=== PATIENT | female | born 1935 | race Caucasian/White ===

== ENCOUNTER → 2017-01-26 | Outpatient (CLI) | payer MEDICARE, MEDICAID ==
[~2017-01-26] MED LIST: ACET-2161 PO; AMIO200T2 PO; ASCO-324 PO; CHOL200026 PO; DOCU-168 PO; FURO20TA4 PO; GLUC1TAB27 PO; HYDR-3989 PO; MIDO2.5T PO; MULT-85 PO; SENN-9 PO; WARF3TAB29 PO
--- NOTE | 2017-01-26 09:56 | DI ---
Indication: ITS.REASON: N28.89 RENAL MASS RIGHT PROCEDURE: CT ABDOMEN W/O CONTRAST: Encounter: Subsequent Comparison: CT abdomen dated September 10, 2016 Technique: Axial CT images were performed through the abdomen without intravenous contrast. Coronal and sagittal two-dimensional reformats. Automated Exposure Control and Iterative Reconstruction dose reducing techniques were utilized. Findings: The lung bases are unchanged. The liver is grossly unremarkable on this noncontrast study. Gallbladder is surgically absent. The spleen, partially fatty replaced pancreas and adrenal glands are unchanged. Irregular right renal mass is again seen measuring 6.9 cm craniocaudally and 5.3 cm transversely on coronal image #32. This is stable from the comparison exam. No obvious new renal mass lesions identified. No retroperitoneal adenopathy. The visualized loops of small and large bowel are unremarkable. Bone windows are unchanged. Impression: Stable large right renal mass. .
== END ==
LOC: IMA 08:57
PROVIDERS: ATTEND Specialist
DX: N28.89 Other specified disorders of kidney and ureter (principal)

== ENCOUNTER 2018-05-15 16:03 | Inpatient (IN) ==
--- NOTE | 2018-05-15 17:04 | History & Physical Report ---
History of Present Illness Date: 05/15/18 Chief complaint: Headache HPI: Purvi Tomas is an 82 year old woman who was directly admitted to observation status from Dr. Pitts for further evaluation of a severe headache. Purvi reports that her headache started at 0300 on 05/13/18, after getting up to use the restroom. She describes the pain as sharp, tender to touch, and the pain worsens with movement. It is occipital but spreads into the parietal areas. It does not go into the neck. She has been taking Tylenol every 6 hours which she thinks has been helpful. While she sometimes has cloudy vision and sees a floater, she has not noticed any acute visual changes. She denies photophobia. She has had some mild nausea. She denies paresthesias or unilateral weakness. She denies fever, chills, or sweating. She denies dizziness, vertigo, tinnitus, or falling. Since her heart surgery 2 years ago she intermittently has chest pain and palpitations, and sometimes is slightly dyspneic. She denies URI symptoms. She has chronic leg swelling that worsens as the day goes on. She denies abdominal pain/cramping but sometimes has diarrhea if she eats fatty foods. She denies dysuria or urinary frequency. Review of Systems All systems PM: 10-point ROS was reviewed, no additional remarkable complaints except - Constitutional Constitutional: Present: as per HPI - EENMT Eyes: Present: as per HPI Ears: Present: as per HPI Balance: Present: as per HPI Mouth/Throat: Absent: changes in swallowing - Cardiovascular Cardiovascular: Present: as per HPI Vascular: Present: see HPI - Respiratory Respiratory: Present: as per HPI - Gastrointestinal Gastrointestinal: Present: as per HPI - Genitourinary Genitourinary: Present: as per HPI - Musculoskeletal Musculoskeletal: Present: other (left shoulder pain) - Integumentary/Breasts Integumentary: Present: other (purple colored lesion to left wrist - chronic) - Neurological Neurological: Present: as per HPI - Psychiatric Psychiatric: Absent: anxiety - Endocrine Endocrine: Present: as per HPI - Hematologic/Lymphatic Hematologic/Lymphatic: Present: easy bruising Past Medical History Medical History: Medical History (Last Reviewed 04/05/17 @ 16:30 by BABATUNDE Wong) Rotator cuff tendinitis (Chronic) Chronic kidney disease (Chronic) Chronic pain of both shoulders (Chronic) Allergic conjunctivitis and rhinitis (Chronic) Renal mass, right (Chronic) 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 Cholecystectomy Family History: Family History (Last Reviewed 04/05/17 @ 16:30 by BABATUNDE Wong) Father , Age 79 Gangrene of gallbladder Mother , Age 96 CHF (congestive heart failure) Sister , Age 57 Uterine cancer Paternal Grandfather Stroke High blood pressure Maternal Grandfather Malignant neoplasm Cancerous growth on arm Family History: As Above - Social History Smoking status: Never smoker Substance use type: does not use Alcohol intake frequency: does not drink Medications Home Medications Medication Instructions Recorded Confirmed Type Multivit with Calcium,Iron,Min 1 tab PO DAILY #0 05/26/15 05/15/18 History [Multiple Vitamins For Women] Acetaminophen [Acetaminophen Extra 500 mg PO TID #0 tab 10/25/15 05/15/18 History Strength] Ascorbate Calcium [Vitamin C] 500 mg PO DAILY #0 tab 01/27/16 05/15/18 History Sennosides/Docusate Sodium 0.5 tab PO Q2D #0 tab 01/27/16 05/15/18 History [Senokot-S Tablet] Acetaminophen [Tylenol] 500 mg PO Q6H PRN 11/30/17 05/15/18 History Docusate Sodium [Colace] 100 mg PO DAILY 11/30/17 05/15/18 History Eucalyptus/Menthol [Cough Drops] 1 each MM PRN 11/30/17 05/15/18 History Guaifenesin/Dextromethorphan 10 ml PO Q4H PRN 11/30/17 05/15/18 History [Robitussin Cough-Chest Dm Liq] Midodrine [Proamatine] 2.5 mg PO BID 11/30/17 05/15/18 History Cholecalciferol (Vitamin D3) 2,000 unit PO DAILY 01/02/18 05/15/18 History [Vitamin D3] Famotidine [Pepcid] 20 mg PO HS 01/02/18 03/02/18 History Fluticasone Nasal [place] [Flonase] 1 spray EA NOSTRIL BID 01/02/18 05/15/18 History Glucosamine 1,000 mg PO DAILY 01/02/18 05/15/18 History Hydrocodone/APAP 5/325 [[place] 1 tab PO Q4-6HPRN PRN #20 tab 01/02/18 05/15/18 Rx 5/325] Claritin (Loratadine) 10 mg tablet 10 mg PO ACB PRN #90 tab 02/07/18 05/15/18 Rx digoxin 125 mcg tablet 125 mcg PO DAILY 14 Days #14 tab 03/02/18 05/15/18 History warfarin 2 mg tablet 2 mg PO .QSun tab 04/04/18 05/15/18 History warfarin 3 mg tablet 3 mg PO .COMPLEX 14 Days #14 tab 04/04/18 05/15/18 History Allergies Allergy/AdvReac Type Severity Reaction Status Date / Time Penicillins Allergy Intermediate INJECTION Verified 05/15/18 17:37 SITE RED olmesartan Allergy Unknown Verified 05/15/18 17:37 nitroglycerin AdvReac Severe HEADACHE, Verified 05/15/18 17:37 HYPOTENSION aspirin AdvReac Mild CAUSES Verified 05/15/18 17:37 DYSPEPSIA carvedilol AdvReac Unknown SEVERE Verified 05/15/18 17:37 DIARRHEA adhesive AdvReac Verified 05/15/18 17:37 Exam - Constitutional Present: well nourished, well developed, thin Comments: Patient began crying in pain with movement from sitting to lying supine. Once the movement ceased she was in no acute distress. - Routine HEENT Exam Head: Present: normocephalic Eye: Present: PERRL, normal accommodation. Absent: conjunctival icterus, scleral injection ENT: Present: mucous membranes moist, oropharynx clear. Absent: dentition normal (edentulous - dentures) - Routine Neck Exam Present: supple, full ROM. Absent: lymphadenopathy, tenderness, meningismus - Routine Respiratory Exam Present: CTA bilaterally - Routine Cardiovascular Exam Present: S1, S2, gallop - Routine Abdominal Exam Present: soft, normoactive bowel sounds, non distended, non tender - Routine Extremities Exam Present: edema (trace-1+ BLE), pulses intact. Absent: calf tenderness - Routine Skin Exam Present: intact, dry, warm Comments: left wrist is larger than right - pt reports that she has a "fat deposit" there ; the purple lesions to her lateral left wrist are also chronic - Routine Neurological Exam Present: alert, oriented X3, CN II-XII intact, moving all extremities, normal tone, vision grossly intact, hearing grossly intact, normal speech. 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 Labs (CBC, CMP, lactate, BC, PCT, dig, INR, and UA) and CT head ordered. Consider lumbar puncture. Consider neuro consult. Further orders pending results of above workup. Sx control: Morphine PRN, Tylenol PRN, [place] PRN, Zofran PRN. Advanced directives: Brother is DPOA. Full code. DVT Prophylaxis: SCD's, Coumadin GI Prophylaxis: Pepcid Resuscitation Status: Full Code - Physician Narrative Physician: Rodrigo Bernal MD Narrative: Date: 05/15/18 Time: 1925 Have independently interviewed and examined pt. Chart reviewed. Case discussed with Dr Pitts and my SLOT OPERATIONS MANAGER. Care plan developed with my supervision; agree with above. Presents to clinic secondary to intractable BECK for the past 2 days. Posterior aspect of head. VERY tender to touch. Pain worsening with time. No f/c. Patient seen after having MS for pain-converses, but reports it's hard to track and focus secondary to the pain medication. Lungs: clear CV: regular AB: soft nt MSE: awake alert Plan: OBS. Will initiate Neurontin and Muscle relaxant for pain. Heating pad as needed. PT/OT to eval/treat her tension headache. Monitor lab. Hospital Course Summary Disclaimer: The visit summary below is not to be considered part of the above Progress Note. Hospital Course: 05/15/18 Admit, observation status, under the hospitalist service. Labs (CBC, CMP, lactate, BC, PCT, dig, INR, and UA) and CT head ordered. Consider lumbar puncture. Consider neuro consult. Further orders pending results of above workup. Sx control: Morphine PRN, Tylenol PRN, [place] PRN, Zofran PRN, Heating pad PRN. Add Neurontin to help pain. Routine Norflex IV. Will consult PT/OT.
[2018-05-15] MEDS: SALINE FLUSH 10ml SYRINGE IV PRN ×3 (17:30→23:05)
[2018-05-15] MEDS: MORPHINE SULFATE 2mg INJECTION IVP PRN ×2 (17:33→22:59)
[2018-05-15] MEDS ORDERED: GABAPENTIN 300 MG CAPSULE PO ONE (17:41)
[2018-05-15] MEDS ORDERED: BISACODYL 10 MG SUPPOSITORY RECTALLY PRN (18:11)
[2018-05-15] MEDS: ORPHENADRINE 60 MG/2 ML INJECTION IVP SCH (18:29)
[2018-05-15] MEDS: ACETAMINOPHEN 500 MG TABLET PO SCH (20:31)
[2018-05-15] MEDS: MIDODRINE 2.5 MG TABLET PO SCH (20:32)
[2018-05-15] MEDS ORDERED: GABAPENTIN 300 MG CAPSULE PO SCH (21:00)
[2018-05-16] MEDS: ACETAMINOPHEN 325 MG TABLET PO PRN ×2 (04:32→21:20)
[2018-05-16] MEDS: MORPHINE SULFATE 2mg INJECTION IVP PRN ×2 (04:58→16:49)
--- NOTE | 2018-05-16 07:56 | CT Scan Report ---
Indication: Headache; warfarin use PROCEDURE: CT head/brain wo con: Encounter: Initial Comparison: None Technique: Axial CT images through the head were performed without contrast. Iterative Reconstruction dose reducing technique was utilized. FINDINGS: The ventricles are of normal size, shape, and contour for the patient's age. There are scattered areas of low attenuation in the white matter which most likely represent changes from chronic microvascular ischemia. The brainstem, cerebellum, and cerebral hemispheres otherwise have a normal morphology and CT attenuation. There is no evidence of midline displacement. No hemorrhage, signs of acute territorial stroke, mass effect, mass lesions, or edema is evident. The visualized portions of the skull base, midface, and calvarium demonstrate no abnormality. The paranasal sinuses are well aerated and free of significant disease. The tympanic and mastoid cavities appear normal. IMPRESSION: No acute intracranial abnormality or hemorrhage. .
--- NOTE | 2018-05-16 08:30 | Progress Note ---
- Date 05/16/18 Subjective: Purvi still complains of severe headache. She also now has a painful rash to the left side of her neck. She denies SOA or chest pain. She has not had any abdominal pain or nausea. She denies ever having shingles before. Family reported yesterday that she's more confused than usual. Objective Vital signs: Temperature 95.9 F L 05/16/18 07:55 Pulse Rate 97 05/16/18 07:55 Respiratory Rate 18 05/16/18 07:55 Blood Pressure 105/71 05/16/18 07:55 Pulse Oximetry 92 05/16/18 07:55 Height/Weight/BMI: Height 1.57 m Weight 69.7 kg Body Mass Index 28.4 - Constitutional Present: no acute distress, well nourished, well developed - Routine HEENT Exam Head: Present: normocephalic Eye: Present: PERRL. Absent: conjunctival icterus, scleral injection ENT: Present: mucous membranes dry, oropharynx clear - Routine Respiratory Exam Present: CTA bilaterally - Routine Cardiovascular Exam Present: RRR, S1, S2, gallop - Routine Abdominal Exam Present: soft, normoactive bowel sounds, non distended, non tender - Routine Extremities Exam Present: no edema - Routine Musculoskeletal Exam Musculoskeletal: Present: moving extremities well - Routine Skin Exam Present: intact, dry, warm, rash (vesicular rash to left anterior neck, with scattered areas of erythema to left deltoid and upper chest wall. No auricular involvement.) - Routine Neurological Exam Present: alert, CN II-XII intact, moving all extremities, vision grossly intact , hearing grossly intact, normal speech - Routine Psychiatric Exam Present: normal affect, normal thought process, cooperative Results - Labs CBC & Chem 7: 05/16/18 04:05 05/16/18 04:05 Microbiology Results: Microbiology 05/15/18 16:56 Peripheral/Iv Start Blood Culture - Preliminary Culture Initiated - Results Pending 05/15/18 17:03 Peripheral/Iv Start Blood Culture - Preliminary Culture Initiated - Results Pending Assessment and Plan Assessment and Plan: Assessment Herpes Zoster Intractable headache A-fib, anticoagulated on Coumadin CAD Right renal mass, 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 With reports of increased confusion , will initiate IV rather than PO acyclovir so as to be more aggressive for neurologic complications. Patient moved to a room to implement airborne precautions.There were no lesions on her ear to suggest Soliz Shah syndrome nor were there lesions on her face or around her eye. Head CT was negative for stroke/hemorrhage. Labs stable, INR therapeutic. Continue with symptom management. High risk medication in use - received IV morphine this am. DVT Prophylaxis: SCD's, Coumadin GI Prophylaxis: Pepcid Resuscitation Status: Full Code - Time spent with patient Time with patient PN: 25 minutes - Physician Narrative Physician: Rodrigo Bernal MD Narrative: Date: 05/16/18 Time: 1720 Have independently interviewed & examined pt. Chart reviewed. Case discussed with CM & my HIGHWAY PAINTER. Care plan developed with my supervision; agree with above. Still with pain to back of neck, very sore to even light touch. Rash and raised lesions developing on anterior neck and chest. Not having ab pain or nausea. Breathing stable. Lungs: clear CV: Irregular AB: soft nt MSE: awake alert appropriate Plan: Acyclovir started for shingles treatment. Will increase Neurontin to help pain. PT/OT to help functional status. INR stable - 3mg of warfarin this evening. With extensive area of shingles involvement to neck and chest with need for IV acyclovir, will change admission status to inpatient as anticipate greater then 2 midnights of care needed. Hospital Course Summary Disclaimer: The visit summary below is not to be considered part of the above Progress Note. Hospital Course: 05/15/18 Admit, observation status, under the hospitalist service. Labs (CBC, CMP, lactate, BC, PCT, dig, INR, and UA) and CT head ordered. Consider lumbar puncture. Consider neuro consult. Further orders pending results of above workup. Sx control: Morphine PRN, Tylenol PRN, [place] PRN, Zofran PRN, Heating pad PRN. Add Neurontin to help pain. Routine Norflex IV. Will consult PT/OT. 05/16/18 Lesions highly suspicious for herpes zoster. With reports of increased confusion , will initiate IV rather than PO acyclovir so as to be more aggressive for neurologic complications. Patient moved to a room to implement airborne precautions.There were no lesions on her ear to suggest Soliz Shah syndrome nor were there lesions on her face or around her eye. Head CT was negative for stroke/hemorrhage. Labs stable, INR therapeutic. Continue with symptom management. High risk medication in use - received IV morphine this am. With extensive area of shingles involvement to neck and chest with need for IV acyclovir, will change admission status to inpatient as anticipate greater then 2 midnights of care needed.
[2018-05-16] MEDS: ORPHENADRINE 60 MG/2 ML INJECTION IVP SCH (09:41)
[2018-05-16] MEDS: MIDODRINE 2.5 MG TABLET PO SCH ×2 (09:41→15:08)
[2018-05-16] MEDS: ACETAMINOPHEN 500 MG TABLET PO SCH ×2 (09:41→15:02)
[2018-05-16] MEDS: DIGOXIN 125 MCG TABLET PO SCH (09:41)
[2018-05-16] MEDS: SALINE FLUSH 10ml SYRINGE IV PRN ×2 (09:42→16:49)
[2018-05-16] MEDS: 1/2 NS 1,000 ML IV SCH (09:44)
[2018-05-16] MEDS: NS IV SCH ×2 (10:46→18:05)
[2018-05-16] MEDS: ACYCLOVIR IV SCH ×2 (10:46→18:05)
[2018-05-16] MEDS: HYDROCODONE/APAP 5mg/325mg TABLET PO PRN (10:48)
[2018-05-16 12:11] VITALS: BMI 28.0
[2018-05-16] MEDS: GABAPENTIN 300 MG CAPSULE PO SCH ×2 (15:02→21:20)
[2018-05-16] MEDS ORDERED: WARFARIN 3 MG TABLET PO ONE (17:03)
[2018-05-17] MEDS: ACETAMINOPHEN 500 MG TABLET PO SCH ×4 (00:44→20:28)
[2018-05-17] MEDS: HYDROCODONE/APAP 5mg/325mg TABLET PO PRN ×2 (01:12→09:15)
[2018-05-17] MEDS: ACYCLOVIR IV SCH ×3 (01:51→17:10)
[2018-05-17] MEDS: NS IV SCH ×3 (01:51→17:10)
[2018-05-17] MEDS: 1/2 NS 1,000 ML IV SCH ×2 (01:51→17:11)
[2018-05-17] MEDS: GUAIFENESIN/D-METHORPHAN 600mg/30mg TABLET PO PRN (06:04)
[2018-05-17] MEDS: SENNA + DOCUSATE TABLET PO PRN (09:06)
[2018-05-17] MEDS: MIDODRINE 2.5 MG TABLET PO SCH ×2 (09:06→15:01)
[2018-05-17] MEDS: DIGOXIN 125 MCG TABLET PO SCH (09:15)
[2018-05-17] MEDS: GABAPENTIN 300 MG CAPSULE PO SCH ×3 (09:16→20:28)
[2018-05-17] MEDS: SALINE FLUSH 10ml SYRINGE IV PRN ×2 (12:35→19:36)
[2018-05-17] MEDS: MORPHINE SULFATE 2mg INJECTION IVP PRN ×2 (12:35→19:36)
[2018-05-17] MEDS ORDERED: WARFARIN 2.5 MG TABLET PO ONE (17:00)
[2018-05-17] MEDS: ONDANSETRON 4 MG/2 ML INJECTION IVP PRN (17:11)
--- NOTE | 2018-05-17 19:52 | Progress Note ---
- Date 05/17/18 Subjective: F/U: Shingles Doing fair. Pain still very problematic. Has been working with therapy to help keep strength up-harder for her to be active on her own due to pain. Appetite decreased-not wanting food, notes ab bloating and gas. Not had stool. Breathing stable-no discomfort with breathing or cough/congestion. Not having chest pain. Objective Vital signs: Temperature 97.1 F 05/17/18 15:38 Pulse Rate 82 05/17/18 15:38 Respiratory Rate 16 05/17/18 19:36 Blood Pressure 112/69 05/17/18 15:38 Pulse Oximetry 93 05/17/18 15:38 Height/Weight/BMI: Height 1.57 m Weight 72 kg Body Mass Index 28.0 - Constitutional Present: well developed, average body habitus, cooperative, other (Appears tired and weak) - Routine HEENT Exam Head: Present: normocephalic, atraumatic Eye: Present: EOMI, PERRL - Routine Respiratory Exam Present: decreased breath sounds. Absent: respiratory distress, wheezes, crackles - Routine Cardiovascular Exam Present: RRR, no murmur - Routine Abdominal Exam Present: soft, non distended, non tender. Absent: normoactive bowel sounds ( decreased) - Routine Extremities Exam Present: no edema, pulses intact. Absent: cyanosis, clubbing - Routine Musculoskeletal Exam Musculoskeletal: Present: no clubbing or cyanosis - Routine Skin Exam Present: dry, warm, rash (To left anterior neck) - Routine Neurological Exam Present: alert, oriented X3, CN II-XII intact, moving all extremities, vision grossly intact, hearing grossly intact, normal speech. Absent: altered mental status - Routine Psychiatric Exam Present: normal affect, cooperative Results - Labs CBC & Chem 7: 05/16/18 04:05 05/17/18 05:24 Microbiology Results: Microbiology 05/15/18 17:03 Peripheral/Iv Start Blood Culture - Preliminary No Growth After 2 Days 05/15/18 16:56 Peripheral/Iv Start Blood Culture - Preliminary No Growth After 2 Days Assessment and Plan (1) Herpes zoster Current visit: Yes Status: Acute (2) Intractable headache Current visit: Yes Status: Acute Assessment and Plan: Assessment Herpes Zoster Intractable headache A-fib, anticoagulated on Coumadin CAD Right renal mass, 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 Continue with pain control. Oral drive with decreased - will continue with low follow IVF. INR 2.08 - 2.5mg warfarin today. PT/OT to help strength and functional status. Bowels slow - add routine Miralax. Time spent with patient care 25 minutes. High risk medication involved: IV morphine. DVT Prophylaxis: SCD's, Coumadin GI Prophylaxis: Pepcid Resuscitation Status: Full Code - Time spent with patient Time with patient PN: 25 minutes - Physician Narrative Physician: Rodrigo Bernal MD Narrative: Date: 05/17/18 Time: 1948 Hospital Course Summary Disclaimer: The visit summary below is not to be considered part of the above Progress Note. Hospital Course: 05/15/18 Admit, observation status, under the hospitalist service. Labs (CBC, CMP, lactate, BC, PCT, dig, INR, and UA) and CT head ordered. Consider lumbar puncture. Consider neuro consult. Further orders pending results of above workup. Sx control: Morphine PRN, Tylenol PRN, [place] PRN, Zofran PRN, Heating pad PRN. Add Neurontin to help pain. Routine Norflex IV. Will consult PT/OT. 05/16/18 Lesions highly suspicious for herpes zoster. With reports of increased confusion , will initiate IV rather than PO acyclovir so as to be more aggressive for neurologic complications. Patient moved to a room to implement airborne precautions.There were no lesions on her ear to suggest Soliz Shah syndrome nor were there lesions on her face or around her eye. Head CT was negative for stroke/hemorrhage. Labs stable, INR therapeutic. Continue with symptom management. High risk medication in use - received IV morphine this am. With extensive area of shingles involvement to neck and chest with need for IV acyclovir, will change admission status to inpatient as anticipate greater then 2 midnights of care needed. 05/17/18 Continue acyclovir for zoster treatment. Continue with pain control. Oral drive with decreased - will continue with low follow IVF. INR 2.08 - 2.5mg warfarin today. PT/OT to help strength and functional status. Bowels slow - add routine Miralax.
[2018-05-18] MEDS: SALINE FLUSH 10ml SYRINGE IV PRN (02:47)
[2018-05-18] MEDS: MORPHINE SULFATE 2mg INJECTION IVP PRN ×2 (02:47→06:23)
[2018-05-18] MEDS: NS IV SCH ×3 (02:48→18:10)
[2018-05-18] MEDS: ACYCLOVIR IV SCH ×3 (02:48→18:10)
[2018-05-18] MEDS: GABAPENTIN 300 MG CAPSULE PO SCH ×3 (08:54→20:10)
[2018-05-18] MEDS: MIDODRINE 2.5 MG TABLET PO SCH ×2 (08:55→14:38)
[2018-05-18] MEDS: ACETAMINOPHEN 500 MG TABLET PO SCH ×3 (08:56→20:10)
[2018-05-18] MEDS: DIGOXIN 125 MCG TABLET PO SCH (08:56)
[2018-05-18] MEDS: HYDROCODONE/APAP 5mg/325mg TABLET PO PRN (10:01)
[2018-05-18] MEDS: ONDANSETRON 4 MG/2 ML INJECTION IVP PRN ×2 (10:01→14:43)
[2018-05-18] MEDS: 1/2 NS 1,000 ML IV SCH ×2 (10:42→19:47)
--- NOTE | 2018-05-18 13:25 | Progress Note ---
- Date 05/18/18 Subjective: Purvi is seen today in follow up. She is finishing lunch and has tolerated soup well. She reports having nausea earlier this am the has improved. Overall head ache is better however not completely gone. Denies chest pain or abdominal pain. Remains afebrile and vital signs are normal. Objective Vital signs: Temperature 96.4 F L 05/18/18 07:50 Pulse Rate 69 05/18/18 08:56 Respiratory Rate 14 05/18/18 11:20 Blood Pressure 116/65 05/18/18 07:50 Pulse Oximetry 91 05/18/18 07:50 Height/Weight/BMI: Height 1.57 m Weight 74.9 kg Body Mass Index 28.0 - Constitutional Present: no acute distress, well nourished, well developed - Routine HEENT Exam Eye: Present: EOMI ENT: Present: mucous membranes moist, dentition normal - Routine Respiratory Exam Present: CTA bilaterally. Absent: wheezes - Routine Cardiovascular Exam Present: RRR, S1, S2. Absent: murmur - Routine Abdominal Exam Present: soft, normoactive bowel sounds, non distended. Absent: tenderness - Routine Extremities Exam Present: no edema - Routine Skin Exam Present: intact, dry, warm - Routine Neurological Exam Present: alert, oriented X3, CN II-XII intact - Routine Lymphatic Exam Lymphatic: Absent: adenopathy - Routine Psychiatric Exam Present: normal affect Results - Labs CBC & Chem 7: 05/16/18 04:05 05/17/18 05:24 Microbiology Results: Microbiology 05/15/18 17:03 Peripheral/Iv Start Blood Culture - Preliminary No Growth After 2 Days 05/15/18 16:56 Peripheral/Iv Start Blood Culture - Preliminary No Growth After 2 Days Assessment and Plan (1) Herpes zoster Current visit: Yes Status: Acute (2) Intractable headache Current visit: Yes Status: Acute Assessment and Plan: Assessment Herpes Zoster Intractable headache A-fib, anticoagulated on Coumadin CAD Right renal mass, 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 Continues to have intermittent nausea requiring antiemetics Encourage increase in PO intake as able to tolerated for hydration INR therapeutic at 2.5 Encourage ongoing work with PT/OT for strengthening DVT Prophylaxis: SCD's, Coumadin GI Prophylaxis: Pepcid Resuscitation Status: Full Code - Time spent with patient Time with patient PN: 25 minutes - Physician Narrative Physician: Rodrigo Bernal MD Narrative: Date: 05/18/18 Time: 1842 Have independently interviewed and examined pt. Chart reviewed. Case discussed with CM & my YARD MANAGER. Care plan developed with my supervision; agree with above. Doing fair. Tolerating therapy. Pain about the same. Notes little appetite. Nausea at time, slight decrease. No ab pain. Not had stool. Breathing well. Lungs: decreased, no distress CV: regular AB: soft nt BS decreased MSE: awake alert Plan: Continue acyclovir. Will decrease IVF to 50cc/hr. Warfarin 2.5mg today. Recheck CBC and BMP in am. Will need Skilled care at discharge; CM making arrangements. Hospital Course Summary Disclaimer: The visit summary below is not to be considered part of the above Progress Note. Hospital Course: 05/15/18 Admit, observation status, under the hospitalist service. Labs (CBC, CMP, lactate, BC, PCT, dig, INR, and UA) and CT head ordered. Consider lumbar puncture. Consider neuro consult. Further orders pending results of above workup. Sx control: Morphine PRN, Tylenol PRN, [place] PRN, Zofran PRN, Heating pad PRN. Add Neurontin to help pain. Routine Norflex IV. Will consult PT/OT. 05/16/18 Lesions highly suspicious for herpes zoster. With reports of increased confusion , will initiate IV rather than PO acyclovir so as to be more aggressive for neurologic complications. Patient moved to a room to implement airborne precautions.There were no lesions on her ear to suggest Soliz Shah syndrome nor were there lesions on her face or around her eye. Head CT was negative for stroke/hemorrhage. Labs stable, INR therapeutic. Continue with symptom management. High risk medication in use - received IV morphine this am. With extensive area of shingles involvement to neck and chest with need for IV acyclovir, will change admission status to inpatient as anticipate greater then 2 midnights of care needed. 05/17/18 Continue acyclovir for zoster treatment. Continue with pain control. Oral drive with decreased - will continue with low follow IVF. INR 2.08 - 2.5mg warfarin today. PT/OT to help strength and functional status. Bowels slow - add routine Miralax. 05/18/18 Continue IV acyclovir for zoster treatment. Continues to have intermittent nausea requiring antiemetics. Encourage increase in PO intake as able to tolerated for hydration; will decrease IVF to 50cc/hr. INR therapeutic at 2.5 - warfarin 2.5mg x1 today. Encourage ongoing work with PT/OT for strengthening. Will need skilled care at time of discharge.
[2018-05-19] MEDS: HYDROCODONE/APAP 5mg/325mg TABLET PO PRN ×3 (00:58→18:00)
[2018-05-19] MEDS: NS IV SCH ×3 (02:18→18:00)
[2018-05-19] MEDS: ACYCLOVIR IV SCH ×3 (02:18→18:00)
[2018-05-19] MEDS: MORPHINE SULFATE 2mg INJECTION IVP PRN (04:26)
[2018-05-19] MEDS: ONDANSETRON 4 MG/2 ML INJECTION IVP PRN ×2 (04:27→12:13)
[2018-05-19] MEDS: GABAPENTIN 300 MG CAPSULE PO SCH ×3 (08:12→21:15)
[2018-05-19] MEDS: ACETAMINOPHEN 500 MG TABLET PO SCH ×3 (08:12→21:15)
[2018-05-19] MEDS: MIDODRINE 2.5 MG TABLET PO SCH ×2 (08:13→14:54)
[2018-05-19] MEDS: 1/2 NS 1,000 ML IV SCH ×2 (08:13→10:15)
[2018-05-19] MEDS: DIGOXIN 125 MCG TABLET PO SCH (08:13)
[2018-05-19] MEDS ORDERED: SCOPOLAMINE 1mg/3 days PATCH (Eq. 1.5 Patch) TD SCH (09:15)
--- NOTE | 2018-05-19 09:22 | Progress Note ---
- Date 05/19/18 Subjective: Purvi is seen today in follow up. She is feeling terrible this morning with increased nausea and headache. She states that her pain wraps around the entire back of her head. She denies feeling short of breath or abd pain. vital signs stable. Objective Vital signs: Temperature 97.0 F 05/19/18 07:51 Pulse Rate 86 05/19/18 08:13 Respiratory Rate 16 05/19/18 07:51 Blood Pressure 132/82 05/19/18 07:51 Pulse Oximetry 90 05/19/18 07:51 Height/Weight/BMI: Height 1.57 m Weight 74.2 kg Body Mass Index 28.0 - Constitutional Present: no acute distress, well nourished, well developed - Routine HEENT Exam Eye: Present: EOMI ENT: Present: mucous membranes moist, dentition normal - Routine Respiratory Exam Present: CTA bilaterally. Absent: wheezes - Routine Cardiovascular Exam Present: RRR, S1, S2. Absent: murmur - Routine Abdominal Exam Present: soft, normoactive bowel sounds, non distended. Absent: tenderness - Routine Extremities Exam Present: full ROM - Routine Back/Spine/Pelvis Exam Back/Spine: Present: full ROM - Routine Skin Exam Present: intact, dry, warm Comments: neck lesions - Routine Neurological Exam Present: alert, oriented X3, CN II-XII intact - Routine Lymphatic Exam Lymphatic: Absent: adenopathy - Routine Psychiatric Exam Present: normal affect, cooperative Results - Labs CBC & Chem 7: 05/19/18 05:20 05/19/18 05:20 Microbiology Results: Microbiology 05/15/18 16:56 Peripheral/Iv Start Blood Culture - Preliminary No Growth After 3 Days 05/15/18 17:03 Peripheral/Iv Start Blood Culture - Preliminary No Growth After 3 Days Assessment and Plan (1) Herpes zoster Current visit: Yes Status: Acute (2) Intractable headache Current visit: Yes Status: Acute Assessment and Plan: Assessment Herpes Zoster Intractable headache A-fib, anticoagulated on Coumadin CAD Right renal mass, 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 Sodium decreased today to 131 Oral intake has been decreased. Encourage ongoing work with PT/OT for strengthening INR 2.9 today DVT Prophylaxis: SCD's, Coumadin GI Prophylaxis: Pepcid Resuscitation Status: Full Code - Time spent with patient Time with patient PN: 25 minutes - Physician Narrative Physician: Rodrigo Bernal MD Narrative: Date: 05/19/18 Time: 7 Have independently interviewed/examined pt. Chart reviewed. Case discussed with CM & my MICROSO[employer] DEVELOPER. Care plan developed with my supervision; agree with above. Things about the same. Not seeing decrease in pain. Really no desire to eat-not nauseated or having ab pain. Breathing okay. No f/c. Has walked with therapy in room several times today; notes feels lightheaded with up. Lungs: decreased CV: regular AB: soft nt/nd BS decreased MSE: awake alert appropriate Plan: Continue with acyclovir. Encourage oral intake and activities. With decrease sodium, will change IVF to NS at 50cc/hr. Continue with pain control. Hospital Course Summary Disclaimer: The visit summary below is not to be considered part of the above Progress Note. Hospital Course: 05/15/18 Admit, observation status, under the hospitalist service. Labs (CBC, CMP, lactate, BC, PCT, dig, INR, and UA) and CT head ordered. Consider lumbar puncture. Consider neuro consult. Further orders pending results of above workup. Sx control: Morphine PRN, Tylenol PRN, [place] PRN, Zofran PRN, Heating pad PRN. Add Neurontin to help pain. Routine Norflex IV. Will consult PT/OT. 05/16/18 Lesions highly suspicious for herpes zoster. With reports of increased confusion , will initiate IV rather than PO acyclovir so as to be more aggressive for neurologic complications. Patient moved to a room to implement airborne precautions.There were no lesions on her ear to suggest Soliz Shah syndrome nor were there lesions on her face or around her eye. Head CT was negative for stroke/hemorrhage. Labs stable, INR therapeutic. Continue with symptom management. High risk medication in use - received IV morphine this am. With extensive area of shingles involvement to neck and chest with need for IV acyclovir, will change admission status to inpatient as anticipate greater then 2 midnights of care needed. 05/17/18 Continue acyclovir for zoster treatment. Continue with pain control. Oral drive with decreased - will continue with low follow IVF. INR 2.08 - 2.5mg warfarin today. PT/OT to help strength and functional status. Bowels slow - add routine Miralax. 05/18/18 Continue IV acyclovir for zoster treatment. Continues to have intermittent nausea requiring antiemetics. Encourage increase in PO intake as able to tolerated for hydration; will decrease IVF to 50cc/hr. INR therapeutic at 2.5 - warfarin 2.5mg x1 today. Encourage ongoing work with PT/OT for strengthening. Will need skilled care at time of discharge. 05/19/18 Will add scopolamine patch to help with nausea along with Zofran Morphine, Neurontin and [place] for pain Continue IV acyclovir for zoster treatment. Sodium decreased today to 131; change IVF to NS at 50cc/hr. Oral intake has been decreased. Encourage ongoing work with PT/OT for strengthening INR 2.9 today - will give 1mg warfarin as oral drive decreased.
[2018-05-19] MEDS ORDERED: WARFARIN 1 MG TABLET PO ONE (12:00)
[2018-05-19] MEDS: NS 1,000 ML IV SCH (17:59)
[2018-05-20] MEDS: ACYCLOVIR IV SCH ×3 (02:00→17:32)
[2018-05-20] MEDS: NS IV SCH ×3 (02:00→17:32)
[2018-05-20] MEDS: HYDROCODONE/APAP 5mg/325mg TABLET PO PRN ×3 (03:15→23:19)
[2018-05-20] MEDS: GUAIFENESIN/D-METHORPHAN 600mg/30mg TABLET PO PRN (03:48)
[2018-05-20] MEDS: GABAPENTIN 300 MG CAPSULE PO SCH ×3 (07:59→21:44)
[2018-05-20] MEDS: DIGOXIN 125 MCG TABLET PO SCH (07:59)
[2018-05-20] MEDS: MIDODRINE 2.5 MG TABLET PO SCH ×2 (08:01→14:40)
[2018-05-20] MEDS: ACETAMINOPHEN 500 MG TABLET PO SCH ×3 (08:01→21:44)
[2018-05-20] MEDS: SENNA + DOCUSATE TABLET PO PRN (08:04)
[2018-05-20] MEDS: POLYETHYL GLYCOL 3350 17gm PACKET PO SCH (17:32)
--- NOTE | 2018-05-20 19:03 | Progress Note ---
- Date 05/20/18 Subjective: F/U: Shingles Rough evening. Patient fell-trauma to back of head. Nursing reports she was sitting in chair when 'bolted up,' loosing footing and falling. Struck back of her head-sore, but not LOC. Significant bleeding. Patient awake and alert- answers questions and moves body appropriately. Reports went to get up to prove she could get up and move well on her own. Oral drive still decreased. Needing O2 to help breathing. Objective Vital signs: Temperature 96.2 F L 05/20/18 16:00 Pulse Rate 63 05/20/18 16:00 Respiratory Rate 16 05/20/18 16:00 Blood Pressure 137/81 05/20/18 16:00 Pulse Oximetry 92 05/20/18 16:01 Height/Weight/BMI: Height 1.57 m Weight 74.7 kg Body Mass Index 28.0 - Constitutional Present: well nourished, well developed - Routine HEENT Exam Head: Present: normocephalic, laceration (Posterior aspect of her skull, bleeding noted.) Eye: Present: EOMI, PERRL, normal accommodation ENT: Present: mucous membranes moist - Routine Respiratory Exam Present: decreased breath sounds. Absent: respiratory distress, wheezes, crackles - Routine Cardiovascular Exam Present: RRR, no murmur - Routine Abdominal Exam Present: soft. Absent: normoactive bowel sounds (Decreased) - Routine Extremities Exam Present: pulses intact. Absent: cyanosis, clubbing - Routine Musculoskeletal Exam Musculoskeletal: Present: no clubbing or cyanosis - Routine Skin Exam Comments: Laceration noted on posterior aspect of skull. - Routine Neurological Exam Present: alert, CN II-XII intact, moving all extremities, vision grossly intact , hearing grossly intact, normal speech. Absent: motor deficit, altered mental status - Routine Psychiatric Exam Present: normal affect, cooperative Results - Labs CBC & Chem 7: 05/19/18 05:20 05/20/18 04:18 Microbiology Results: Microbiology 05/15/18 16:56 Peripheral/Iv Start Blood Culture - Final No Growth After 5 Days 05/15/18 17:03 Peripheral/Iv Start Blood Culture - Final No Growth After 5 Days Assessment and Plan (1) Herpes zoster Current visit: Yes Status: Acute (2) Intractable headache Current visit: Yes Status: Acute Assessment and Plan: Assessment Herpes Zoster Intractable headache Fall secondary to loss of footing (Not POA) Scalp laceration secondary to fall trauma (Not POA) A-fib, anticoagulated on Coumadin CAD Right renal mass, 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 With laceration looking deep, did discuss case with Dr Mathias in ED - likely need sutures/stables. INR 3.02 - holding warfarin to day. Continue Acyclovir and pain control. Encourage oral intake. Bumex 1mg given today at noon as weight trending up. Recheck CBC in am due to anticoagulation. Will check BMP in am due to IVF use. DVT Prophylaxis: SCD's, Coumadin GI Prophylaxis: Pepcid Resuscitation Status: Full Code - Physician Narrative Narrative: Date: 05/20/18 Time: 1858 Hospital Course Summary Disclaimer: The visit summary below is not to be considered part of the above Progress Note. Hospital Course: 05/15/18 Admit, observation status, under the hospitalist service. Labs (CBC, CMP, lactate, BC, PCT, dig, INR, and UA) and CT head ordered. Consider lumbar puncture. Consider neuro consult. Further orders pending results of above workup. Sx control: Morphine PRN, Tylenol PRN, [place] PRN, Zofran PRN, Heating pad PRN. Add Neurontin to help pain. Routine Norflex IV. Will consult PT/OT. 05/16/18 Lesions highly suspicious for herpes zoster. With reports of increased confusion , will initiate IV rather than PO acyclovir so as to be more aggressive for neurologic complications. Patient moved to a room to implement airborne precautions.There were no lesions on her ear to suggest Soliz Shah syndrome nor were there lesions on her face or around her eye. Head CT was negative for stroke/hemorrhage. Labs stable, INR therapeutic. Continue with symptom management. High risk medication in use - received IV morphine this am. With extensive area of shingles involvement to neck and chest with need for IV acyclovir, will change admission status to inpatient as anticipate greater then 2 midnights of care needed. 05/17/18 Continue acyclovir for zoster treatment. Continue with pain control. Oral drive with decreased - will continue with low follow IVF. INR 2.08 - 2.5mg warfarin today. PT/OT to help strength and functional status. Bowels slow - add routine Miralax. 05/18/18 Continue IV acyclovir for zoster treatment. Continues to have intermittent nausea requiring antiemetics. Encourage increase in PO intake as able to tolerated for hydration; will decrease IVF to 50cc/hr. INR therapeutic at 2.5 - warfarin 2.5mg x1 today. Encourage ongoing work with PT/OT for strengthening. Will need skilled care at time of discharge. 05/19/18 Will add scopolamine patch to help with nausea along with Zofran Morphine, Neurontin and [place] for pain Continue IV acyclovir for zoster treatment. Sodium decreased today to 131; change IVF to NS at 50cc/hr. Oral intake has been decreased. Encourage ongoing work with PT/OT for strengthening INR 2.9 today - will give 1mg warfarin as oral drive decreased. 05/20/18 Patient sustained injury fall - trauma to back of head with laceration. Will obtain CT Head without contrast due to fall trauma to exclude cerebral bleeding. With laceration looking deep, did discuss case with Dr Mathias in ED - likely need sutures/stables. INR 3.02 - holding warfarin to day. Continue Acyclovir and pain control. Encourage oral intake. Bumex 1mg given today at noon as weight trending up.
[2018-05-20] MEDS ORDERED: LIDOCAINE 1%/EPI 1:100,000 20ml INJ MDV INFIL ONE (21:19)
[2018-05-20] MEDS ORDERED: NEOMYCIN/POLYMYXIN/BACITRACIN OINT PACKET TP PRN (21:19)
--- NOTE | 2018-05-20 21:27 | Emergency Department Report ---
ED Provider Documentation S: Consulted by hospitalist to evaluate pt for a skin avulsion/lac after a fall. Pt fell while admitted earlier this evening. Pt is taking coumadin; she hit her head and now has a bleeding avulsion/lac. Head CT was ordered by the hospitalist; hospitalist unable to fully visualize wound. O: Pt AAO x3; CN II-XII intact grossly; no neurologic deficits on exam. Posterior, left of midline of pts scalp, has a 1.5cm avulsion perpendicular to the ground. Minimal oozing present at the time of exam. There is some ecchymosis to the left of the laceration. Procedure: After discussion of options and plans, pt opts for stapling of her avulsion. Six mL total of lidocaine with epi infiltrated on either side of pts avulsion. Wound edges were then approximated with 3 servando. Pt tolerated the procedure well; wound hemostatic at conclusion of procedure. A/P: Scalp avulsion. Wound now closed and hemostatic. Recommend bid dressing changes with application of JANE and non-stick dressing directly over the wound. Servando to be removed in 7 days.
[2018-05-20] MEDS: NS 1,000 ML IV SCH (22:47)
[2018-05-21] MEDS: NS IV SCH ×3 (01:23→17:57)
[2018-05-21] MEDS: ACYCLOVIR IV SCH ×3 (01:23→17:57)
[2018-05-21] MEDS: ACETAMINOPHEN 325 MG TABLET PO PRN (03:29)
[2018-05-21] MEDS: HYDROCODONE/APAP 5mg/325mg TABLET PO PRN ×3 (06:44→19:56)
[2018-05-21] MEDS: POLYETHYL GLYCOL 3350 17gm PACKET PO SCH (09:06)
[2018-05-21] MEDS: ACETAMINOPHEN 500 MG TABLET PO SCH ×3 (09:06→19:59)
[2018-05-21] MEDS: GABAPENTIN 300 MG CAPSULE PO SCH ×3 (09:07→19:59)
[2018-05-21] MEDS: SENNA + DOCUSATE TABLET PO SCH (09:07)
[2018-05-21] MEDS: MIDODRINE 2.5 MG TABLET PO SCH ×2 (09:07→15:12)
[2018-05-21] MEDS: DIGOXIN 125 MCG TABLET PO SCH (09:07)
[2018-05-21] MEDS: DOCUSATE SODIUM 100 MG CAPSULE PO SCH (09:07)
--- NOTE | 2018-05-21 13:36 | CT Scan Report ---
Indication: Fall PROCEDURE: CT head/brain wo con: Encounter: Initial Comparison: May 15, 2018 Technique: Axial CT images through the head were performed without contrast. Iterative Reconstruction dose reducing technique was utilized. FINDINGS: Mild to moderate atrophy. The ventricles are of normal size, shape, and configuration for the patient's age. There is no evidence of acute intracranial hemorrhage, midline displacement, or mass effect. There are scattered areas of low attenuation in the white matter which most likely represent changes of chronic microvascular ischemia. The CT attenuation of the brain parenchyma is otherwise normal within the cerebellum, brain stem, and cerebral hemispheres. The tympanic cavities and mastoid air cells are free of appreciable disease. There are no definite fractures of the skull base, calvarium, or visualized portion of the midface. Minimal sinus fluid. Posterior parietal scalp hematoma. IMPRESSION: No CT evidence of acute traumatic intracranial injury. There is a preliminary report by [facility]. .
--- NOTE | 2018-05-21 13:54 | Progress Note ---
- Date 05/21/18 Subjective: Purvi is seen today in follow up today. She is resting in bed and complains of a ongoing headache. unfortunately she fell last night and was evaluated by the inhouse ER physician. She had a CT of the head and required 3 stables in her scalp laceration. Today she denies having chest pain, shortness of breath or GI concerns. Continued lesions to anterior neck. Objective Vital signs: Temperature 96.5 F L 05/21/18 07:30 Pulse Rate 87 05/21/18 09:07 Respiratory Rate 16 05/21/18 07:30 Blood Pressure 123/75 05/21/18 07:30 Pulse Oximetry 90 05/21/18 10:05 Height/Weight/BMI: Height 1.57 m Weight 72.9 kg Body Mass Index 28.0 - Constitutional Present: no acute distress, well nourished, well developed - Routine HEENT Exam Eye: Present: EOMI ENT: Present: mucous membranes moist, dentition normal - Routine Respiratory Exam Present: CTA bilaterally. Absent: wheezes - Routine Cardiovascular Exam Present: RRR, S1, S2. Absent: murmur - Routine Abdominal Exam Present: soft, normoactive bowel sounds, non distended. Absent: tenderness - Routine Extremities Exam Present: full ROM - Routine Back/Spine/Pelvis Exam Back/Spine: Present: full ROM - Routine Musculoskeletal Exam Musculoskeletal: Present: other (Posterior head hematoma with 3 servando) - Routine Skin Exam Present: intact, dry, warm - Routine Neurological Exam Present: alert, oriented X3, CN II-XII intact - Routine Lymphatic Exam Lymphatic: Absent: adenopathy - Routine Psychiatric Exam Present: normal affect, cooperative Results - Labs CBC & Chem 7: 05/21/18 04:50 05/21/18 04:50 Microbiology Results: Microbiology 05/15/18 16:56 Peripheral/Iv Start Blood Culture - Final No Growth After 5 Days 05/15/18 17:03 Peripheral/Iv Start Blood Culture - Final No Growth After 5 Days Assessment and Plan (1) Herpes zoster Current visit: Yes Status: Acute (2) Intractable headache Current visit: Yes Status: Acute Assessment and Plan: Assessment Herpes Zoster Intractable headache Fall secondary to loss of footing (Not POA) Scalp laceration secondary to fall trauma (Not POA) A-fib, anticoagulated on Coumadin CAD Right renal mass, 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 Scalp [place] to be removed 05/27. [place] and Neurontin for pain control. INR today 2.64 - will give 2mg of warfarin today. Continue Acyclovir for treatment of Herpes Zoster - Lesions are starting to crust over. On 2 liters of oxygen. Monitor daily weights and fluid status - Up 3Kg from admission. Will stop IVF to see if this helps improve appetite. Was given Bumex yesterday. May require further diuresing. Follow daily labs. DVT Prophylaxis: SCD's, Coumadin GI Prophylaxis: Pepcid Resuscitation Status: Full Code - Time spent with patient Time with patient PN: 25 minutes - Physician Narrative Physician: Rodrigo Bernal MD Narrative: Date: 05/21/18 Time: 1908 Have independently interviewed and examined pt. Chart reviewed. Case discussed with my VISITING NURSE and family. Care plan developed with my supervision; agree with above. Resting in bed this evening, easily awakened. Feels tired. Headache about the same. Still with little appetite. Did eat more this evening with family encouragement. Slight cough, no pain with breathing. Lungs: decreased, no distress CV: irregular AB: soft nt MSE: awake alert Gen : appears weak and tired. Plan: Will stop IVF to see if this helps with appetite-weight up. Coumadin 2mg x1 today. Continue pain control. Encourage oral intake. Hospital Course Summary Disclaimer: The visit summary below is not to be considered part of the above Progress Note. Hospital Course: 05/15/18 Admit, observation status, under the hospitalist service. Labs (CBC, CMP, lactate, BC, PCT, dig, INR, and UA) and CT head ordered. Consider lumbar puncture. Consider neuro consult. Further orders pending results of above workup. Sx control: Morphine PRN, Tylenol PRN, [place] PRN, Zofran PRN, Heating pad PRN. Add Neurontin to help pain. Routine Norflex IV. Will consult PT/OT. 05/16/18 Lesions highly suspicious for herpes zoster. With reports of increased confusion , will initiate IV rather than PO acyclovir so as to be more aggressive for neurologic complications. Patient moved to a room to implement airborne precautions.There were no lesions on her ear to suggest Soliz Shah syndrome nor were there lesions on her face or around her eye. Head CT was negative for stroke/hemorrhage. Labs stable, INR therapeutic. Continue with symptom management. High risk medication in use - received IV morphine this am. With extensive area of shingles involvement to neck and chest with need for IV acyclovir, will change admission status to inpatient as anticipate greater then 2 midnights of care needed. 05/17/18 Continue acyclovir for zoster treatment. Continue with pain control. Oral drive with decreased - will continue with low follow IVF. INR 2.08 - 2.5mg warfarin today. PT/OT to help strength and functional status. Bowels slow - add routine Miralax. 05/18/18 Continue IV acyclovir for zoster treatment. Continues to have intermittent nausea requiring antiemetics. Encourage increase in PO intake as able to tolerated for hydration; will decrease IVF to 50cc/hr. INR therapeutic at 2.5 - warfarin 2.5mg x1 today. Encourage ongoing work with PT/OT for strengthening. Will need skilled care at time of discharge. 05/19/18 Will add scopolamine patch to help with nausea along with Zofran Morphine, Neurontin and [place] for pain Continue IV acyclovir for zoster treatment. Sodium decreased today to 131; change IVF to NS at 50cc/hr. Oral intake has been decreased. Encourage ongoing work with PT/OT for strengthening INR 2.9 today - will give 1mg warfarin as oral drive decreased. 05/20/18 Patient sustained injury fall - trauma to back of head with laceration. Will obtain CT Head without contrast due to fall trauma to exclude cerebral bleeding. With laceration looking deep, did discuss case with Dr Mathias in ED - likely need sutures/stables. INR 3.02 - holding warfarin to day. Continue Acyclovir and pain control. Encourage oral intake. Bumex 1mg given today at noon as weight trending up. 05/21/18 Continue to monitor of evidence of neurological changes given chronic anticoagulation and head injury. Scalp [place] to be removed 05/27. [place] and Neurontin for pain control. INR today 2.64 - will give 2mg warfarin today. Continue Acyclovir for treatment of Herpes Zoster - Lesions are starting to crust over. On 2 liters of oxygen. Monitor daily weights and fluid status - Up 3Kg from admission. Will stop IVF to see if this helps improve appetite. Was given Bumex yesterday. May require further diuresing.
--- NOTE | 2018-05-21 13:56 | XRay Report ---
INDICATION: dyspnea PROCEDURE: CHEST 2-VIEWS UPRIGHT (PA & LAT) Encounter: Initial COMPARISON: November 30, 2017 FINDINGS: Pulmonary edema has worsened from the prior study. Trace effusions. No pneumothorax. Cardiac silhouette remains enlarged. Prior sternotomy and cardiac valve replacement. Impression: Moderate pulmonary edema likely due to CHF. .
[2018-05-21] MEDS: ONDANSETRON 4 MG/2 ML INJECTION IVP PRN (15:10)
[2018-05-21] MEDS ORDERED: WARFARIN 2 MG TABLET PO ONE (19:01)
[2018-05-22] MEDS: NS IV SCH ×3 (01:31→18:30)
[2018-05-22] MEDS: ACYCLOVIR IV SCH ×3 (01:31→18:30)
[2018-05-22] MEDS: HYDROCODONE/APAP 5mg/325mg TABLET PO PRN ×2 (07:47→22:05)
[2018-05-22] MEDS ORDERED: WARFARIN - PHARMACY CONSULT MC ONE (08:00)
[2018-05-22] MEDS: DOCUSATE SODIUM 100 MG CAPSULE PO SCH (08:32)
[2018-05-22] MEDS: MIDODRINE 2.5 MG TABLET PO SCH ×2 (08:32→15:17)
[2018-05-22] MEDS: DIGOXIN 125 MCG TABLET PO SCH (08:32)
[2018-05-22] MEDS: GABAPENTIN 300 MG CAPSULE PO SCH ×4 (08:32→20:56)
[2018-05-22] MEDS: POLYETHYL GLYCOL 3350 17gm PACKET PO SCH (08:32)
[2018-05-22] MEDS: ACETAMINOPHEN 500 MG TABLET PO SCH ×3 (08:33→20:56)
[2018-05-22] MEDS: SENNA + DOCUSATE TABLET PO SCH (08:33)
--- NOTE | 2018-05-22 09:23 | Pharmacy Consult ---
Pharmacy Consult-Warfarin - Laboratory Information 05/15/18 05/15/18 05/15/18 16:56 16:56 16:56 Hgb 15.4 Hct 47.1 H INR 2.24 H AST 32 ALT 24 Albumin 4.8 05/16/18 05/16/18 05/17/18 04:05 04:05 05:24 Hgb 13.7 D Hct 42.2 INR 2.28 H 2.08 H AST ALT Albumin 05/18/18 05/19/18 05/19/18 04:09 05:20 05:20 Hgb 12.3 Hct 37.6 INR 2.54 H 2.98 H AST ALT Albumin 05/20/18 05/21/18 05/21/18 04:18 04:50 04:50 Hgb 12.6 Hct 38.8 INR 3.02 H 2.64 H AST ALT Albumin 05/22/18 05/22/18 03:59 03:59 Hgb 12.2 Hct 37.1 INR 2.88 H AST ALT Albumin - Consult Information COUMADIN CONSULT (Initial): Dx: SEVERE HEADACHE Pt is 5'2" female 73.5 kg who takes warfarin at home for A-Fib. Her home med dose of warfarin is 3 mg daily EXCEPT Sundays which is 2 mg. DATE INR DOSE 05/21 2.64 2 MG 05/22 2.88 Will give 1 mg warfarin today Thank you. Tere Hameed, PharmD
[2018-05-22] MEDS: NS 1,000 ML IV SCH (09:44)
[2018-05-22] MEDS ORDERED: NS FLUSH BAG 500ml IV PRN (10:49)
[2018-05-22] MEDS: ONDANSETRON 4 MG/2 ML INJECTION IVP PRN (11:09)
[2018-05-22] MEDS ORDERED: WARFARIN 1 MG TABLET PO SCH (12:00)
--- NOTE | 2018-05-22 12:05 | Progress Note ---
- Date 05/22/18 Subjective: Purvi is seen this morning while up in the chair. She asks if there is someone behind her because she keeps hearing a noise however when she talks no one responds. This noise is coming from the IV pole. She looks more alert than yesterday however she continues to complain of diffuse headache. She is point tender at scalp laceration where the #3 khris are placed as well as tenderness over scabbed area on the top of her head appears to be a shingles lesion. She denies having any pain or feeling short of breath. Objective Vital signs: Temperature 96.5 F L 05/21/18 07:30 Pulse Rate 86 05/22/18 08:32 Respiratory Rate 18 05/22/18 07:00 Blood Pressure 128/71 05/22/18 07:00 Pulse Oximetry 93 05/22/18 07:00 Height/Weight/BMI: Height 1.57 m Weight 73.5 kg Body Mass Index 28.0 - Constitutional Present: no acute distress, well nourished, well developed - Routine HEENT Exam Eye: Present: EOMI ENT: Present: mucous membranes moist, dentition normal Comments: 3 khris to right posterior parietal - Routine Respiratory Exam Present: CTA bilaterally. Absent: wheezes - Routine Cardiovascular Exam Present: RRR, S1, S2. Absent: murmur - Routine Abdominal Exam Present: soft, normoactive bowel sounds, non distended. Absent: tenderness - Routine Extremities Exam Present: full ROM, normal capillary refill - Routine Back/Spine/Pelvis Exam Back/Spine: Present: full ROM - Routine Skin Exam Present: intact, dry, warm - Routine Neurological Exam Present: alert, oriented X3, CN II-XII intact, moving all extremities - Routine Lymphatic Exam Lymphatic: Absent: adenopathy - Routine Psychiatric Exam Present: normal thought process, cooperative Results - Labs CBC & Chem 7: 05/22/18 03:59 05/22/18 03:59 Microbiology Results: Microbiology 05/15/18 16:56 Peripheral/Iv Start Blood Culture - Final No Growth After 5 Days 05/15/18 17:03 Peripheral/Iv Start Blood Culture - Final No Growth After 5 Days Assessment and Plan (1) Intractable headache Current visit: Yes Status: Acute (2) Herpes zoster Current visit: Yes Status: Acute Assessment and Plan: Assessment Herpes Zoster Intractable headache Fall secondary to loss of footing (Not POA) Scalp laceration secondary to fall trauma (Not POA) A-fib, anticoagulated on Coumadin CAD Right renal mass, probable renal cell CA CKD Mild dementia Plan Scalp wound is healing good without edema or drainage. [place] remain intact. Should be removed approximately 05/27. Patient does continue to struggle with headaches despite current pain regimen. Will increase Neurontin to 300 milligrams in the morning, 300 milligrams at 1500 and increase at bedtime dose to 600 milligrams. Patient can continue to utilize by mouth [place] and Tylenol as needed. [place] on IV acyclovir for treatment of shingles-all lesions appear to be a scab /crusted over. Encourage work with PT and OT for ongoing strengthening Morning Labs reviewed- stable DVT Prophylaxis: SCD's, Coumadin GI Prophylaxis: Pepcid Resuscitation Status: Full Code - Physician Narrative Physician: Hussein Krishnan MD Narrative: Date: 05/22/18 Time: 1158 I have independently interviewed and examined patient. Patient chart reviewed. Case discussed with my TRUCK DRIVER FLATBED. Care plan developed with my supervision, agree with above. Patient resting in bed at the time of interview. Reports having continued headache, patient also has tenderness noted over her scalp and on further examination noted to have scabbing lesions associated with shingles on her scalp. Scalp laceration which patient acquired after having a fall while trying to get up from bed on 05/20/2018 stable. Tentative plan for removal of khris on 05/27/2018. Physical exam: AAO x 3, NAD PERRLA, EOMI S1 and S2 heard on auscultation, no murmurs Lungs clear to auscultation bilaterally, no wheezing, no crackles Abdomen soft, nontender, positive bowel sounds No edema bilateral lower extremities. Assessment: Herpes zoster, scabbing lesions on scalp, forehead and left side of the neck. Status post fall with scalp laceration. Coronary artery disease, right -sided renal mass, concern for carcinoma, CK D, dementia, atrial fibrillation. Plan: Will increase Neurontin 300 mg by mouth twice a day and 600 mg by mouth at bedtime. Continue on [place] and Tylenol as needed for pain. Continue IV acyclovir. PT/OT will continue working with patient. Hospital Course Summary Disclaimer: The visit summary below is not to be considered part of the above Progress Note. Hospital Course: 05/15/18 Admit, observation status, under the hospitalist service. Labs (CBC, CMP, lactate, BC, PCT, dig, INR, and UA) and CT head ordered. Consider lumbar puncture. Consider neuro consult. Further orders pending results of above workup. Sx control: Morphine PRN, Tylenol PRN, [place] PRN, Zofran PRN, Heating pad PRN. Add Neurontin to help pain. Routine Norflex IV. Will consult PT/OT. 05/16/18 Lesions highly suspicious for herpes zoster. With reports of increased confusion , will initiate IV rather than PO acyclovir so as to be more aggressive for neurologic complications. Patient moved to a room to implement airborne precautions.There were no lesions on her ear to suggest Soliz Shah syndrome nor were there lesions on her face or around her eye. Head CT was negative for stroke/hemorrhage. Labs stable, INR therapeutic. Continue with symptom management. High risk medication in use - received IV morphine this am. With extensive area of shingles involvement to neck and chest with need for IV acyclovir, will change admission status to inpatient as anticipate greater then 2 midnights of care needed. 05/17/18 Continue acyclovir for zoster treatment. Continue with pain control. Oral drive with decreased - will continue with low follow IVF. INR 2.08 - 2.5mg warfarin today. PT/OT to help strength and functional status. Bowels slow - add routine Miralax. 05/18/18 Continue IV acyclovir for zoster treatment. Continues to have intermittent nausea requiring antiemetics. Encourage increase in PO intake as able to tolerated for hydration; will decrease IVF to 50cc/hr. INR therapeutic at 2.5 - warfarin 2.5mg x1 today. Encourage ongoing work with PT/OT for strengthening. Will need skilled care at time of discharge. 05/19/18 Will add scopolamine patch to help with nausea along with Zofran Morphine, Neurontin and [place] for pain Continue IV acyclovir for zoster treatment. Sodium decreased today to 131; change IVF to NS at 50cc/hr. Oral intake has been decreased. Encourage ongoing work with PT/OT for strengthening INR 2.9 today - will give 1mg warfarin as oral drive decreased. 05/20/18 Patient sustained injury fall - trauma to back of head with laceration. Will obtain CT Head without contrast due to fall trauma to exclude cerebral bleeding. With laceration looking deep, did discuss case with Dr Mathias in ED - likely need sutures/stables. INR 3.02 - holding warfarin to day. Continue Acyclovir and pain control. Encourage oral intake. Bumex 1mg given today at noon as weight trending up. 05/21/18 Continue to monitor of evidence of neurological changes given chronic anticoagulation and head injury. Scalp [place] to be removed 05/27. [place] and Neurontin for pain control. INR today 2.64 - will give 2mg warfarin today. Continue Acyclovir for treatment of Herpes Zoster - Lesions are starting to crust over. On 2 liters of oxygen. Monitor daily weights and fluid status - Up 3Kg from admission. Will stop IVF to see if this helps improve appetite. Was given Bumex yesterday. May require further diuresing. 05/22/18 Scalp wound is healing good without edema or drainage. [place] remain intact. Should be removed approximately 05/27. Patient does continue to struggle with headaches despite current pain regimen. Will increase Neurontin to 300 milligrams in the morning, 300 milligrams at 1500 and increase at bedtime dose to 600 milligrams. Patient can continue to utilize by mouth [place] and Tylenol as needed. [place] on IV acyclovir for treatment of shingles-all lesions appear to be a scab /crusted over. Encourage work with PT and OT for ongoing strengthening Morning Labs reviewed- stable
[2018-05-23] MEDS: NS IV SCH ×4 (02:44→22:45)
[2018-05-23] MEDS: ACYCLOVIR IV SCH ×4 (02:44→22:45)
--- NOTE | 2018-05-23 07:25 | Pharmacy Consult ---
Pharmacy Consult-Warfarin - Laboratory Information 05/15/18 05/15/18 05/15/18 16:56 16:56 16:56 Hgb 15.4 Hct 47.1 H INR 2.24 H AST 32 ALT 24 Albumin 4.8 05/16/18 05/16/18 05/17/18 04:05 04:05 05:24 Hgb 13.7 D Hct 42.2 INR 2.28 H 2.08 H AST ALT Albumin 05/18/18 05/19/18 05/19/18 04:09 05:20 05:20 Hgb 12.3 Hct 37.6 INR 2.54 H 2.98 H AST ALT Albumin 05/20/18 05/21/18 05/21/18 04:18 04:50 04:50 Hgb 12.6 Hct 38.8 INR 3.02 H 2.64 H AST ALT Albumin 05/22/18 05/22/18 05/23/18 03:59 03:59 04:02 Hgb 12.2 12.0 Hct 37.1 37.5 INR 2.88 H AST ALT Albumin 05/23/18 04:02 Hgb Hct INR 3.29 H AST ALT Albumin - Consult Information INR is slightly elevated so no warfarin will be ordered today. Will continue to monitor. Thank you.
[2018-05-23] MEDS: DOCUSATE SODIUM 100 MG CAPSULE PO SCH (09:14)
[2018-05-23] MEDS: MIDODRINE 2.5 MG TABLET PO SCH ×2 (09:14→15:43)
[2018-05-23] MEDS: ACETAMINOPHEN 500 MG TABLET PO SCH (09:14)
[2018-05-23] MEDS: GABAPENTIN 300 MG CAPSULE PO SCH ×3 (09:14→20:31)
[2018-05-23] MEDS: DIGOXIN 125 MCG TABLET PO SCH (09:15)
[2018-05-23] MEDS: SENNA + DOCUSATE TABLET PO SCH (09:15)
[2018-05-23] MEDS: POLYETHYL GLYCOL 3350 17gm PACKET PO SCH (09:15)
[2018-05-23] MEDS ORDERED: RENAL DOSING - PHARMACY CONSULT MC ONE (11:58)
--- NOTE | 2018-05-23 12:04 | Progress Note ---
- Date 05/23/18 Subjective: Purvi is seen this morning while sleeping in bed. She is sleeping deeply and arouses after multiple attempts. Speech and thoughts are unclear immediately after being awakened and slowly clear and improve but she is unable able to stay awake. While sleeping, she appears in no acute distress. Upon awaking she does admit to a generalized headache and pain to her left ear but is unable to provide a description of the pain or pain scale rating. Review of vital signs reveals that she is requiring more oxygen at 3L NC which is most likely secondary to her sedation from the medications. Overall, labs are unremarkable. Weight is trending up with tachycardia (HR 99) and tachypnea (RR 24). Objective Vital signs: Temperature 98.3 F 05/23/18 09:02 Pulse Rate 97 05/23/18 09:15 Respiratory Rate 24 05/23/18 09:02 Blood Pressure 130/78 05/23/18 09:02 Pulse Oximetry 93 05/23/18 11:15 Height/Weight/BMI: Height 5 ft 2 in Weight 162 lb 0.636 oz Body Mass Index 28.0 Comments: Sleeping soundly and awakens after multiple attempts but remains very drowsy and somnolent. - Constitutional Present: no acute distress, well nourished, well developed, cooperative - Routine HEENT Exam Head: Present: normocephalic Eye: Present: PERRL ENT: Present: mucous membranes dry - Routine Respiratory Exam Present: CTA bilaterally. Absent: wheezes Comments: Requiring increased oxygen at 3L today. No cough or conversational dyspnea. Tachypnea noted following being awakened. - Routine Cardiovascular Exam Present: RRR, S1, S2 - Routine Abdominal Exam Present: soft, normoactive bowel sounds, non tender - Routine Extremities Exam Present: edema (1+ lower extremities) - Routine Musculoskeletal Exam Musculoskeletal: Present: no clubbing or cyanosis - Routine Skin Exam Present: dry, warm Comments: Afebrile; crusting shingles rash to left face, ear and head. - Routine Neurological Exam Present: moving all extremities Initially sleeping very soundly and disorientated with awakening which improves while awake, though remains very somnolent. - Routine Lymphatic Exam Lymphatic: Absent: lymphedema - Routine Psychiatric Exam Present: cooperative Comments: Somnolent. Results - Labs CBC & Chem 7: 05/23/18 04:02 05/23/18 04:02 Microbiology Results: Microbiology 05/15/18 16:56 Peripheral/Iv Start Blood Culture - Final No Growth After 5 Days 05/15/18 17:03 Peripheral/Iv Start Blood Culture - Final No Growth After 5 Days Assessment and Plan (1) Intractable headache Current visit: Yes Status: Acute (2) Herpes zoster Current visit: Yes Status: Acute Assessment and Plan: Assessment Herpes Zoster Intractable headache Fall secondary to loss of footing (Not POA) Scalp laceration secondary to fall trauma (Not POA) A-fib, anticoagulated on Coumadin CAD Right renal mass, 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 Requiring 3L NC oxygen to maintain sats in low 90's, most likely secondary to increased sedation from pain medication. Continue to complain of generalized headache and pain secondary to shingles but sleeping without signs of distress. Patient does continue to struggle with headaches despite current pain regimen. Concern with additional pain control given level of sedation noted with hypoxia noted. Monitor oxygen saturation continuously, weaning oxygen as able. Given increased hypoxia, will check CXR and encourage incentive spirometry Neurontin increased to 300mg BID with 600mg QHS on 05/22. Concern increasing Neurontin given stage III chronic kidney disease with GFR at 40s. Will consult pharmacy for renal dosing to avoid oversedation due to poor excretion. Continue IV acyclovir for treatment of shingles-all lesions appear to be a scab/ crusted over. Will start Topamax for additional headache treatment. Continue to encourage work with PT and OT for ongoing strengthening Scalp wound is healing good without edema or drainage. [place] remain intact. Should be removed approximately 05/27. Patient can continue to utilize by mouth [place] and Tylenol as needed. INR elevated at 3.29. Pharmacy managing. Anticipate discharge in near future. DVT Prophylaxis: SCD's, Coumadin GI Prophylaxis: Pepcid Resuscitation Status: Full Code - Time spent with patient Time with patient PN: 35 minutes - Physician Narrative Physician: Hussein Krishnan MD Narrative: Date: 05/23/18 Time: 1200 I have independently interviewed and examined patient. Patient chart reviewed. Case discussed with my PA. Care plan developed with my supervision, agree with above. Patient resting in bed at the time of interview. Patient continues to have headache and reports tenderness over the back of her head where she had a recent fall. Scalp laceration which patient acquired after having a fall while trying to get up from bed on 05/20/2018 stable. Tentative plan for removal of serv[place] on 05/27/2018. Patient afebrile overnight. Patient has +3 L fluid balance since yesterday along with 2.1 KG weight gain. We will provide Lasix 20 mg IV 1. Physical exam: AAO x 3, in mild painful distress PERRLA, EOMI. Scabbing noted over scalp, forehead, left side of neck and chest wall. S1 and S2 heard on auscultation, no murmurs Bilateral expiratory wheezing on auscultation. No crackles Abdomen soft, nontender, positive bowel sounds No edema bilateral lower extremities. Assessment: Herpes zoster, scabbing lesions on scalp, forehead and left side of the neck. Status post fall with scalp laceration. Coronary artery disease, right -sided renal mass, concern for carcinoma, CKD, dementia, atrial fibrillation. Plan: Will continue Neurontin 300 mg by mouth twice a day and 600 mg by mouth at bedtime. Lasix 20 mg IV 1 with concern for fluid overload. DuoNeb 3 ml nebulization treatment every 6 hours as needed for wheezing or shortness of breath. Portable chest x-ray today does not show any evidence of worsening CHF. Add Topamax 25 mg by mouth twice a day to assist with neuropathic pain. Continue on [place] and Tylenol as needed for pain. Continue IV acyclovir. Hospital Course Summary Disclaimer: The visit summary below is not to be considered part of the above Progress Note. Hospital Course: 05/15/18 Admit, observation status, under the hospitalist service. Labs (CBC, CMP, lactate, BC, PCT, dig, INR, and UA) and CT head ordered. Consider lumbar puncture. Consider neuro consult. Further orders pending results of above workup. Sx control: Morphine PRN, Tylenol PRN, [place] PRN, Zofran PRN, Heating pad PRN. Add Neurontin to help pain. Routine Norflex IV. Will consult PT/OT. 05/16/18 Lesions highly suspicious for herpes zoster. With reports of increased confusion , will initiate IV rather than PO acyclovir so as to be more aggressive for neurologic complications. Patient moved to a room to implement airborne precautions.There were no lesions on her ear to suggest Soliz Shah syndrome nor were there lesions on her face or around her eye. Head CT was negative for stroke/hemorrhage. Labs stable, INR therapeutic. Continue with symptom management. High risk medication in use - received IV morphine this am. With extensive area of shingles involvement to neck and chest with need for IV acyclovir, will change admission status to inpatient as anticipate greater then 2 midnights of care needed. 05/17/18 Continue acyclovir for zoster treatment. Continue with pain control. Oral drive with decreased - will continue with low follow IVF. INR 2.08 - 2.5mg warfarin today. PT/OT to help strength and functional status. Bowels slow - add routine Miralax. 05/18/18 Continue IV acyclovir for zoster treatment. Continues to have intermittent nausea requiring antiemetics. Encourage increase in PO intake as able to tolerated for hydration; will decrease IVF to 50cc/hr. INR therapeutic at 2.5 - warfarin 2.5mg x1 today. Encourage ongoing work with PT/OT for strengthening. Will need skilled care at time of discharge. 05/19/18 Will add scopolamine patch to help with nausea along with Zofran Morphine, Neurontin and [place] for pain Continue IV acyclovir for zoster treatment. Sodium decreased today to 131; change IVF to NS at 50cc/hr. Oral intake has been decreased. Encourage ongoing work with PT/OT for strengthening INR 2.9 today - will give 1mg warfarin as oral drive decreased. 05/20/18 Patient sustained injury fall - trauma to back of head with laceration. Will obtain CT Head without contrast due to fall trauma to exclude cerebral bleeding. With laceration looking deep, did discuss case with Dr Mathias in ED - likely need sutures/stables. INR 3.02 - holding warfarin to day. Continue Acyclovir and pain control. Encourage oral intake. Bumex 1mg given today at noon as weight trending up. 05/21/18 Continue to monitor of evidence of neurological changes given chronic anticoagulation and head injury. Scalp [place] to be removed 05/27. [place] and Neurontin for pain control. INR today 2.64 - will give 2mg warfarin today. Continue Acyclovir for treatment of Herpes Zoster - Lesions are starting to crust over. On 2 liters of oxygen. Monitor daily weights and fluid status - Up 3Kg from admission. Will stop IVF to see if this helps improve appetite. Was given Bumex yesterday. May require further diuresing. 05/22/18 Scalp wound is healing good without edema or drainage. [place] remain intact. Should be removed approximately 05/27. Patient does continue to struggle with headaches despite current pain regimen. Will increase Neurontin to 300 milligrams in the morning, 300 milligrams at 1500 and increase at bedtime dose to 600 milligrams. Patient can continue to utilize by mouth [place] and Tylenol as needed. Tenuis on IV acyclovir for treatment of shingles-all lesions appear to be a scab /crusted over. Encourage work with PT and OT for ongoing strengthening Morning Labs reviewed- stable 05/23/18 Sleeping very soundly on exam and awakens after multiple attempts. Requiring 3L NC oxygen to maintain sats in low 90's, most likely secondary to increased sedation from pain medication. Continue to complain of generalized headache and pain secondary to shingles but sleeping without signs of distress. Patient does continue to struggle with headaches despite current pain regimen. Concern with additional pain control given level of sedation noted with hypoxia noted. Monitor oxygen saturation continuously, weaning oxygen as able. Given increased hypoxia, will check CXR and encourage incentive spirometry Neurontin increased to 300mg BID with 600mg QHS on 05/22. Concern increasing Neurontin given stage III chronic kidney disease with GFR at 40s. Will consult pharmacy for renal dosing to avoid oversedation due to poor excretion. Continue IV acyclovir for treatment of shingles-all lesions appear to be a scab/ crusted over. Will start Topamax for additional headache treatment. Continue to encourage work with PT and OT for ongoing strengthening Scalp wound is healing good without edema or drainage. [place] remain intact. Should be removed approximately 05/27. Patient can continue to utilize by mouth [place] and Tylenol as needed. INR elevated at 3.29. Pharmacy managing. Anticipate discharge in near future.
--- NOTE | 2018-05-23 14:00 | Pharmacy Consult- Renal Dosing ---
Pharamcy Consul-Renal Dosing - Laboratory Information 05/15/18 05/16/18 05/17/18 16:56 04:05 05:24 BUN 18.0 H 18.0 H 16.0 Creatinine 1.0 1.0 0.9 05/19/18 05/20/18 05/21/18 05:20 04:18 04:50 BUN 11.0 9.0 8.0 Creatinine 0.7 D 0.7 0.8 05/22/18 05/23/18 03:59 04:02 BUN 7.0 13.0 D Creatinine 0.7 1.0 D - Consult Information Renal dosing consult noted by Buzz FINE for Purvi Tomas, who is 82 years old. Her creatinine is 1.0 mg/dl and her creatinine clearance is 40 ml/min. All the medications on the patients profile were ok except for the acyclovir. That was adjusted from q8h to q12h. Thank you.
--- NOTE | 2018-05-23 14:04 | XRay Report ---
Indication: hypoxia PROCEDURE: XR chest 1V: Encounter: Initial Comparison: May 20, 2018 Findings: Congestive failure has improved with a mild amount remaining. No gross pleural effusion or pneumothorax. Heart size and mediastinal contours are stable. Prior sternotomy and cardiac valve replacement again noted. Impression: Improving congestive failure. .
[2018-05-23] MEDS: ACETAMINOPHEN 325 MG TABLET PO PRN (14:33)
[2018-05-23] MEDS ORDERED: ALBUTEROL/IPRATROPIUM 2.5mg-0.5mg/3ml NEB IPPB PRN (16:56)
[2018-05-23] MEDS ORDERED: FUROSEMIDE 20 MG/2 ML INJECTION IVP ONE (16:56)
[2018-05-23] MEDS: TOPIRAMATE 25 MG TABLET PO SCH (20:31)
[2018-05-23] MEDS: HYDROCODONE/APAP 5mg/325mg TABLET PO PRN (20:32)
[2018-05-24] MEDS: HYDROCODONE/APAP 5mg/325mg TABLET PO PRN ×2 (04:05→14:23)
--- NOTE | 2018-05-24 09:41 | Pharmacy Consult ---
Pharmacy Consult-Warfarin - Laboratory Information 05/23/18 05/24/18 05/24/18 04:02 04:48 04:48 Hgb 12.2 Hct 37.7 INR 3.29 H 1.91 H AST ALT Albumin - Consult Information COUMADIN CONSULT: Day 4 MH is an 82 year old woman who was directly admitted to observation status from Dr. Pitts for further evaluation of a severe headache. Patient anticoagulated with Coumadin for the diagnosis of Atrial Fibrillation. The patient's homw dose of warfarin is Warfarin 3 mg daily except Tuesday and 2 mg on Tuesday only. Date INR Dose 05/21 2.64 2 mg 05/22 2.88 1 mg 05/23 3.29 Held 05/24 1.91 2 mg The INR was slightly subtherapeutic @ 1.91, so I am ordering Warfarin 2 mg p.o. 1X today. The pharmacy will conitnue to monitor the daily INR's and adjust the warfarin accordingly. Thanks for the Protocol, Ramo Toribio, Pharmacist.
[2018-05-24] MEDS: GABAPENTIN 300 MG CAPSULE PO SCH ×3 (09:45→20:02)
[2018-05-24] MEDS: TOPIRAMATE 25 MG TABLET PO SCH ×2 (09:45→20:02)
[2018-05-24] MEDS: SENNA + DOCUSATE TABLET PO SCH (09:45)
[2018-05-24] MEDS: DIGOXIN 125 MCG TABLET PO SCH (09:45)
[2018-05-24] MEDS: MIDODRINE 2.5 MG TABLET PO SCH ×2 (09:45→15:16)
[2018-05-24] MEDS: POLYETHYL GLYCOL 3350 17gm PACKET PO SCH (09:46)
[2018-05-24] MEDS: DOCUSATE SODIUM 100 MG CAPSULE PO SCH (09:46)
[2018-05-24] MEDS: ACYCLOVIR IV SCH ×3 (09:48→22:26)
[2018-05-24] MEDS: NS IV SCH ×3 (09:48→22:26)
[2018-05-24] MEDS: ACETAMINOPHEN 325 MG TABLET PO PRN (10:47)
[2018-05-24] MEDS ORDERED: WARFARIN 2 MG TABLET PO SCH (12:00)
--- NOTE | 2018-05-24 15:26 | Progress Note ---
- Date 05/24/18 Subjective: Purvi is seen this afternoon while resting in bed. She is alert and oriented during conversation. She states that currently her headache is approximately a 6 out of 10. She is waiting for pain medications to start working. She does continue on oxygen 2.5L - normally does not use it. Denies chest pain or GI complaints. Weight up 5 Kg from admission. Objective Vital signs: Temperature 98.5 F 05/24/18 07:55 Pulse Rate 77 05/24/18 09:45 Respiratory Rate 18 05/24/18 15:16 Blood Pressure 135/77 05/24/18 07:55 Pulse Oximetry 92 05/24/18 12:28 Height/Weight/BMI: Height 1.57 m Weight 75.5 kg Body Mass Index 28.0 - Constitutional Present: no acute distress, well nourished, well developed - Routine HEENT Exam Eye: Present: EOMI ENT: Present: mucous membranes moist, dentition normal - Routine Respiratory Exam Present: CTA bilaterally. Absent: wheezes - Routine Cardiovascular Exam Present: RRR, S1, S2 - Routine Abdominal Exam Present: soft, normoactive bowel sounds, non distended. Absent: tenderness - Routine Extremities Exam Present: edema, full ROM - Routine Back/Spine/Pelvis Exam Back/Spine: Present: full ROM - Routine Skin Exam Present: intact, dry, warm - Routine Neurological Exam Present: alert, oriented X3, CN II-XII intact, moving all extremities - Routine Lymphatic Exam Lymphatic: Absent: adenopathy - Routine Psychiatric Exam Present: normal affect, cooperative Results - Labs CBC & Chem 7: 05/24/18 04:48 05/24/18 04:48 Microbiology Results: Microbiology 05/15/18 16:56 Peripheral/Iv Start Blood Culture - Final No Growth After 5 Days 05/15/18 17:03 Peripheral/Iv Start Blood Culture - Final No Growth After 5 Days Assessment and Plan (1) Intractable headache Current visit: Yes Status: Acute (2) Herpes zoster Current visit: Yes Status: Acute Assessment and Plan: Assessment Herpes Zoster Intractable headache Fall secondary to loss of footing (Not POA) Scalp laceration secondary to fall trauma (Not POA) A-fib, anticoagulated on Coumadin CAD Right renal mass, probable renal cell CA CKD Mild dementia Plan Currently requiring 2.5 L of oxygen. Wt up 5 Kg from admission Asked Nursing staff to recheck BP now. If stable will given one time dose of Lasix 40 mg PO Work on weaning off oxygen Ambulate QID Continue to work on headache control. - Neurontin, Tylenol, [place], and Topamax was added yesterday Continue on acyclovir for shingles. Hopeful for discharge SNU at [facility] in the next 1-2 days DVT Prophylaxis: SCD's, Coumadin GI Prophylaxis: Pepcid Resuscitation Status: Full Code - Physician Narrative Physician: Hussein Krishnan MD Narrative: Date: 05/24/18 Time: 152 I have independently interviewed and examined patient. Patient chart reviewed. Case discussed with my [employer]. Care plan developed with my supervision, agree with above. Patient resting in bed at the time of interview. Has about 10 pound weight gain from admission. We will provide Lasix 40 mg by mouth 1. Will monitor intake and output. Reports headache 3/10 today and symptomatically states headache has improved. Patient reports current medication regimen helping with symptoms of intractable headache. No reported chest pain, no shortness of breath, no palpitations. Physical exam: AAO x 3, NAD PERRLA, EOMI. Scabbing noted over scalp, forehead, left side of neck and chest wall. S1 and S2 heard on auscultation, no murmurs Bilateral expiratory wheezing on auscultation. No crackles Abdomen soft, nontender, positive bowel sounds No edema bilateral lower extremities. Assessment: Herpes zoster, scabbing lesions on scalp, forehead and left side of the neck. Status post fall with scalp laceration. Coronary artery disease, right -sided renal mass, concern for carcinoma, CKD, dementia, atrial fibrillation. Plan: Will continue Neurontin 300 mg by mouth twice a day and 600 mg by mouth at bedtime. Continue Topamax 25 mg by mouth twice a day. Continue on [place] and Tylenol as needed for pain. Continue IV acyclovir. Lasix 40 mg by mouth 1 with concern for fluid overload. DuoNeb 3 ml nebulization treatment every 6 hours as needed for wheezing or shortness of breath. Patient currently on 2.5 L supplemental oxygen via nasal cannula, will gradually wean off supplemental oxygen as tolerated. Patient encouraged to ambulate. Hospital Course Summary Disclaimer: The visit summary below is not to be considered part of the above Progress Note. Hospital Course: 05/15/18 Admit, observation status, under the hospitalist service. Labs (CBC, CMP, lactate, BC, PCT, dig, INR, and UA) and CT head ordered. Consider lumbar puncture. Consider neuro consult. Further orders pending results of above workup. Sx control: Morphine PRN, Tylenol PRN, [place] PRN, Zofran PRN, Heating pad PRN. Add Neurontin to help pain. Routine Norflex IV. Will consult PT/OT. 05/16/18 Lesions highly suspicious for herpes zoster. With reports of increased confusion , will initiate IV rather than PO acyclovir so as to be more aggressive for neurologic complications. Patient moved to a room to implement airborne precautions.There were no lesions on her ear to suggest Soliz Shah syndrome nor were there lesions on her face or around her eye. Head CT was negative for stroke/hemorrhage. Labs stable, INR therapeutic. Continue with symptom management. High risk medication in use - received IV morphine this am. With extensive area of shingles involvement to neck and chest with need for IV acyclovir, will change admission status to inpatient as anticipate greater then 2 midnights of care needed. 05/17/18 Continue acyclovir for zoster treatment. Continue with pain control. Oral drive with decreased - will continue with low follow IVF. INR 2.08 - 2.5mg warfarin today. PT/OT to help strength and functional status. Bowels slow - add routine Miralax. 05/18/18 Continue IV acyclovir for zoster treatment. Continues to have intermittent nausea requiring antiemetics. Encourage increase in PO intake as able to tolerated for hydration; will decrease IVF to 50cc/hr. INR therapeutic at 2.5 - warfarin 2.5mg x1 today. Encourage ongoing work with PT/OT for strengthening. Will need skilled care at time of discharge. 05/19/18 Will add scopolamine patch to help with nausea along with Zofran Morphine, Neurontin and [place] for pain Continue IV acyclovir for zoster treatment. Sodium decreased today to 131; change IVF to NS at 50cc/hr. Oral intake has been decreased. Encourage ongoing work with PT/OT for strengthening INR 2.9 today - will give 1mg warfarin as oral drive decreased. 05/20/18 Patient sustained injury fall - trauma to back of head with laceration. Will obtain CT Head without contrast due to fall trauma to exclude cerebral bleeding. With laceration looking deep, did discuss case with Dr Mathias in ED - likely need sutures/stables. INR 3.02 - holding warfarin to day. Continue Acyclovir and pain control. Encourage oral intake. Bumex 1mg given today at noon as weight trending up. 05/21/18 Continue to monitor of evidence of neurological changes given chronic anticoagulation and head injury. Scalp [place] to be removed 05/27. [place] and Neurontin for pain control. INR today 2.64 - will give 2mg warfarin today. Continue Acyclovir for treatment of Herpes Zoster - Lesions are starting to crust over. On 2 liters of oxygen. Monitor daily weights and fluid status - Up 3Kg from admission. Will stop IVF to see if this helps improve appetite. Was given Bumex yesterday. May require further diuresing. 05/22/18 Scalp wound is healing good without edema or drainage. [place] remain intact. Should be removed approximately 05/27. Patient does continue to struggle with headaches despite current pain regimen. Will increase Neurontin to 300 milligrams in the morning, 300 milligrams at 1500 and increase at bedtime dose to 600 milligrams. Patient can continue to utilize by mouth [place] and Tylenol as needed. Tenuis on IV acyclovir for treatment of shingles-all lesions appear to be a scab /crusted over. Encourage work with PT and OT for ongoing strengthening Morning Labs reviewed- stable 05/23/18 Sleeping very soundly on exam and awakens after multiple attempts. Requiring 3L NC oxygen to maintain sats in low 90's, most likely secondary to increased sedation from pain medication. Continue to complain of generalized headache and pain secondary to shingles but sleeping without signs of distress. Patient does continue to struggle with headaches despite current pain regimen. Concern with additional pain control given level of sedation noted with hypoxia noted. Monitor oxygen saturation continuously, weaning oxygen as able. Given increased hypoxia, will check CXR and encourage incentive spirometry Neurontin increased to 300mg BID with 600mg QHS on 05/22. Concern increasing Neurontin given stage III chronic kidney disease with GFR at 40s. Will consult pharmacy for renal dosing to avoid oversedation due to poor excretion. Continue IV acyclovir for treatment of shingles-all lesions appear to be a scab/ crusted over. Will start Topamax for additional headache treatment. Continue to encourage work with PT and OT for ongoing strengthening Scalp wound is healing good without edema or drainage. [place] remain intact. Should be removed approximately 05/27. Patient can continue to utilize by mouth [place] and Tylenol as needed. INR elevated at 3.29. Pharmacy managing. Anticipate discharge in near future. 05/24/18 Currently requiring 2.5 L of oxygen. Wt up 5 Kg from admission Asked Nursing staff to recheck BP now. If stable will given one time dose of Lasix 40 mg PO Work on weaning off oxygen Ambulate QID Continue to work on headache control. - Neurontin, Tylenol, [place], and Topamax was added yesterday Continue on acyclovir for shingles. Hopeful for discharge SNU at [facility] in the next 1-2 days
[2018-05-24] MEDS ORDERED: FUROSEMIDE 40 MG TABLET PO ONE (15:32)
[2018-05-25] MEDS: HYDROCODONE/APAP 5mg/325mg TABLET PO PRN ×2 (05:00→12:28)
--- NOTE | 2018-05-25 07:48 | Pharmacy Consult ---
Pharmacy Consult-Warfarin - Laboratory Information 05/15/18 05/15/18 05/15/18 16:56 16:56 16:56 Hgb 15.4 Hct 47.1 H INR 2.24 H AST 32 ALT 24 Albumin 4.8 05/16/18 05/16/18 05/17/18 04:05 04:05 05:24 Hgb 13.7 D Hct 42.2 INR 2.28 H 2.08 H AST ALT Albumin 05/18/18 05/19/18 05/19/18 04:09 05:20 05:20 Hgb 12.3 Hct 37.6 INR 2.54 H 2.98 H AST ALT Albumin 05/20/18 05/21/18 05/21/18 04:18 04:50 04:50 Hgb 12.6 Hct 38.8 INR 3.02 H 2.64 H AST ALT Albumin 05/22/18 05/22/18 05/23/18 03:59 03:59 04:02 Hgb 12.2 12.0 Hct 37.1 37.5 INR 2.88 H AST ALT Albumin 05/23/18 05/24/18 05/24/18 04:02 04:48 04:48 Hgb 12.2 Hct 37.7 INR 3.29 H 1.91 H AST ALT Albumin 05/25/18 03:54 Hgb Hct INR 1.86 H AST ALT Albumin - Consult Information INR down to 1.86. We will give usual home dose of warfarin today of 3mg po at 1200. Lovenox bridge for 1 dose may be advised for today. We will continue to monitor and adjust as needed. Thanks
[2018-05-25 08:20] VITALS: BP 118/69; PULSE 75; TEMP 97.5
[2018-05-25] MEDS: POLYETHYL GLYCOL 3350 17gm PACKET PO SCH (09:10)
[2018-05-25] MEDS: GABAPENTIN 300 MG CAPSULE PO SCH ×2 (09:10→15:09)
[2018-05-25] MEDS: DIGOXIN 125 MCG TABLET PO SCH (09:10)
[2018-05-25] MEDS: MIDODRINE 2.5 MG TABLET PO SCH ×2 (09:10→15:09)
[2018-05-25] MEDS: TOPIRAMATE 25 MG TABLET PO SCH (09:10)
[2018-05-25] MEDS: DOCUSATE SODIUM 100 MG CAPSULE PO SCH (09:10)
[2018-05-25] MEDS: NS IV SCH (09:11)
[2018-05-25] MEDS: SENNA + DOCUSATE TABLET PO SCH (09:11)
[2018-05-25] MEDS: ACYCLOVIR IV SCH (09:11)
[2018-05-25 11:19] VITALS: O2SAT 96
[2018-05-25] MEDS ORDERED: WARFARIN 3 MG TABLET PO SCH (12:00)
[2018-05-25 12:28] VITALS: RESP 16
--- NOTE | 2018-05-25 12:31 | Discharge Summary ---
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 There are scattered areas of low attenuation in the white matter which most likely represent changes from chronic microvascular ischemia. The brainstem , cerebellum, and cerebral hemispheres otherwise have a normal morphology and CT attenuation. There is no evidence of midline displacement. No hemorrhage, signs of acute territorial stroke, mass effect, mass lesions, or edema is evident. The visualized portions of the skull base, midface, and calvarium demonstrate no abnormality. The paranasal sinuses are well aerated and free of significant disease. The tympanic and mastoid cavities appear normal. IMPRESSION: No acute intracranial abnormality or hemorrhage. = = = = = = = = = = = = = = = = = = = = = = = = = = = = = = = = = = = = = = = = = = = = = = = = = = = = = = = = = = = Date of Exam: 05/20/18 PROCEDURE: CT head/brain wo con after a fall: IMPRESSION: No CT evidence of acute traumatic intracranial injury. = = = = = = = = = = = = = = = = = = = = = = = = = = = = = = = = = = = = = = = = = = = = = = = = = = = = = = = = = = = Date of Exam: 05/20/18 PROCEDURE: CHEST 2-VIEWS UPRIGHT (PA & LAT) FINDINGS: Pulmonary edema has worsened from the prior study. Trace effusions. No pneumothorax. Cardiac silhouette remains enlarged. Prior sternotomy and cardiac valve replacement. Impression: Moderate pulmonary edema likely due to CHF. = = = = = = = = = = = = = = = = = = = = = = = = = = = = = = = = = = = = = = = = = = = = = = = = = = = = = = = = = = = Date of Exam: 05/23/18 PROCEDURE: XR chest 1V: Impression: Improving congestive failure. History of Present Illness HPI: Purvi Tomas is an 82 year old woman who was directly admitted to observation status from Dr. Pitts for further evaluation of a severe headache. Purvi reports that her headache started at 0300 on 05/13/18, after getting up to use the restroom. She describes the pain as sharp, tender to touch, and the pain worsens with movement. It is occipital but spreads into the parietal areas. It does not go into the neck. She has been taking Tylenol every 6 hours which she thinks has been helpful. While she sometimes has cloudy vision and sees a floater, she has not noticed any acute visual changes. She denies photophobia. She has had some mild nausea. She denies paresthesias or unilateral weakness. She denies fever, chills, or sweating. She denies dizziness, vertigo, tinnitus, or falling. Since her heart surgery 2 years ago she intermittently has chest pain and palpitations, and sometimes is slightly dyspneic. She denies URI symptoms. She has chronic leg swelling that worsens as the day goes on. She denies abdominal pain/cramping but sometimes has diarrhea if she eats fatty foods. She denies dysuria or urinary frequency. Objective Vital signs: Temperature 97.5 F 05/25/18 08:14 Pulse Rate 75 05/25/18 09:10 Respiratory Rate 20 05/25/18 05:00 Blood Pressure 118/69 05/25/18 08:14 Pulse Oximetry 96 05/25/18 11:19 Height/Weight/BMI: Height 1.57 m Weight 72.5 kg Body Mass Index 28.0 - Constitutional Present: no acute distress, well nourished, well developed - Routine HEENT Exam Head: Absent: atraumatic (laceration to scalp is healing well - no erythema or drainage) Eye: Present: PERRL. Absent: conjunctival icterus, scleral injection ENT: Present: oropharynx clear Comments: No zoster lesions visualized in left ear canal - Routine Respiratory Exam Present: CTA bilaterally - Routine Cardiovascular Exam Present: RRR, S1, S2 - Routine Abdominal Exam Present: soft, normoactive bowel sounds, non tender, distended (mild) - Routine Extremities Exam Present: pulses intact. Absent: calf tenderness - Routine Musculoskeletal Exam Musculoskeletal: Present: moving extremities well - Routine Skin Exam Present: dry, warm, rash (zoster lesions to neck, chest are crusted over and fading) - Routine Neurological Exam Present: alert, oriented X3, CN II-XII intact, moving all extremities, normal speech. Absent: facial asymmetry - Routine Psychiatric Exam Present: normal affect, normal thought process, cooperative Hospital Course This is a general summary of the patient's hospital course. For more details refer to the complete medical record. Hospital course: 05/15/18 Admit, observation status, under the hospitalist service. Head CT was negative for stroke/hemorrhage. Labs stable, INR therapeutic. IVF started. Sx control: Neurontin, Norflex, Morphine PRN, Tylenol PRN, Rodman PRN, Zofran PRN , Heating pad PRN. Consult PT/OT. 05/16/18 Lesions highly suspicious for herpes zoster. Increased confusion, initiate IV rather than PO acyclovir so as to be more aggressive for neurologic complications. Patient moved to a room to implement airborne precautions.There were no lesions on her ear to suggest Soliz Shah syndrome nor were there lesions on her face or around her eye. With extensive area of shingles involvement to neck and chest with need for IV acyclovir, change admission status to inpatient. 05/17/18 - 05/18/18 Continue IV acyclovir for zoster treatment. Continues to have intermittent nausea requiring antiemetics. Encourage increase in PO intake as able to tolerated for hydration; decrease IVF to 50cc/hr. 05/19/18 Add scopolamine patch to help with nausea along with Zofran Sodium decreased to 131; change IVF to NS at 50cc/hr. Oral intake has been decreased. 05/20/18 Patient sustained injury fall - trauma to back of head with laceration. Repeat head CT was negative. Laceration was stapled. INR 3.02 - hold warfarin Bumex 1mg given as weight trending up. 05/21/18 Scalp Khris to be removed 05/27. Continue Acyclovir for treatment of Herpes Zoster - Lesions are starting to crust over. On 2 liters of oxygen. Up 3Kg from admission. Stop IVF. 05/22/18 Scalp wound is healing well without edema or drainage. Continues to struggle with headaches despite current pain regimen. Neurontin dose increased. 05/23/18 Sleeping very soundly on exam and awakens after multiple attempts. Requiring 3L NC oxygen to maintain sats in low 90's, most likely secondary to increased sedation from pain medication. Lasix given for concern of fluid overload. Portable chest x-ray today does not show any evidence of worsening CHF. Neurontin 300 mg by mouth twice a day and 600 mg by mouth at bedtime. Topamax 25 mg by mouth twice a day to assist with neuropathic pain Continue IV acyclovir for treatment of shingles-all lesions appear to be a scab/ crusted over. INR elevated at 3.29. Pharmacy managing. 05/24/18 Currently requiring 2.5 L of oxygen. Wt up 5 Kg from admission; ordered Lasix 40 mg PO 05/25/18 Weight trending down; currently 72.5 kg. Goal weight = 70 kg. Still on 2L O2. Lasix 20 mg PO x1 (along with KDur 20 mEq). Medically stable for discharge to SNF. Will Rx Lasix 20 mg PO PRN weight gain of 3 lbs in 1 day. Work on weaning oxygen while at SNF. Her course of IV acyclovir has been completed. Continue Neurontin 300 mg BID and 600 mg HS. Continue Topamax 25 mg BID. Rodman PRN severe pain. Wound care for scalp laceration - khris to be removed around 05/27/18. F/U with Dr. Gomez next week - he was updated prior to discharge and intends to see her on 05/30/18. He will recheck INR and BMP at that time, and remove her khris. Time spent with patient: discharge greater than 30 minutes Resuscitation Status: Full Code Discharge Plan - Discharge Disposition Discharge Date: 05/25/18 Disposition: 03 To SNU Not [facility] (SNF) *Condition: Stable Reason For Visit (Visit label in EMR): Intractable headache - Discharge Medications *Discharge Medications: New Gabapentin [Neurontin] 300 mg PO cap Senna + Docusate [Senna Plus Tablet] 1 tab PO DAILY tab Topiramate [Topamax] 25 mg PO BID tab Potassium Chloride [K-DUR 20 mEq Tablet] 1 tab PO DAILY PRN #20 tab PRN Reason: Give with Lasix Gabapentin [Neurontin] 600 mg PO HS cap PEG 3350 17gm PACKET [Miralax] 17 gm PO DAILY packet Furosemide [Lasix 20 mg Tab] 1 tab PO DAILY PRN #20 tab PRN Reason: Edema Continue Multivit with Calcium,Iron,Min [Multiple Vitamins For Women] 1 tab PO DAILY # 0 Acetaminophen [Acetaminophen Extra Strength] 500 mg PO TID #0 tab Ascorbate Calcium [Vitamin C] 500 mg PO DAILY #0 tab Eucalyptus/Menthol [Cough Drops] 1 each MM PRN Guaifenesin/Dextromethorphan [Robitussin Cough-Chest Dm Liq] 10 ml PO Q4H PRN PRN Reason: Cough Acetaminophen [Tylenol] 500 mg PO Q6H PRN PRN Reason: Pain Midodrine [Proamatine] 2.5 mg PO BID Famotidine [Pepcid] 20 mg PO HS Fluticasone Nasal [place] [Flonase] 1 spray EA NOSTRIL BID Glucosamine 1,000 mg PO DAILY Hydrocodone/APAP 5/325 [Rodman 5/325] 1 tab PO Q4-6HPRN PRN #20 tab PRN Reason: Pain Cholecalciferol (Vitamin D3) [Vitamin D3] 2,000 unit PO DAILY Claritin (Loratadine) 10 mg tablet 10 mg PO ACB PRN #90 tab PRN Reason: Prn Orders warfarin 2 mg tablet 2 mg PO .QSun tab digoxin 125 mcg tablet 125 mcg PO DAILY 14 Days #14 tab warfarin 3 mg tablet 3 mg PO .COMPLEX 14 Days #14 tab Discontinued Sennosides/Docusate Sodium [Senokot-S Tablet] 0.5 tab PO Q2D #0 tab Docusate Sodium [Colace] 100 mg PO DAILY - Discharge Packet/Instructions *Diet: Regular *Activity: PT/OT *Pain Management/Treatment: Rx Gabapentin, Topamax, Rodman *Wound Care: Monitor scalp laceration for redness, purulent drainage, swelling. OK to shower but do not soak. *Expected Signs/Symptoms: Headache may be persistent but should fade with time. *Notify Physician if: weight gain of 3 lbs in 1 day; increased SOA or oxygen needs; chest pain; confusion/mental status changes; stroke-like symptoms; fever ; recurrent vomiting and/or diarrhea; any urgent concerns *During Business Hours Contact: Dr. Gomez's office. *After Business Hours Contact: The on-call provider for Dr. Gomez. *Pending Lab/Results: No Pending Lab - Referrals/Follow Up *Referrals/Follow Up: Mario Gomez MD [Primary Care Provider] - 1 Week - Patient Handouts Patient Handouts: Shingles (GEN), Acute Headache (GEN) - Dismissal Complete Discharge Instructions are:: Complete Physician Narrative - Narrative Physician: Hussein Krishnan MD Attestation Narrative: Date: 05/25/18 Time: 1226 I have independently interviewed and examined patient. Patient chart reviewed. Case discussed with my CYBER THREAT ANALYST. Care plan developed with my supervision, agree with above. A pleasant 82-year-old female patient admitted with intractable headache, evidence of herpes zoster rash on scalp, left side of forehead, coronary artery disease, right-sided renal mass, atrial fibrillation. Patient unfortunately had a fall with loss of footing while in the hospital and had scalp laceration which required khris placement on 05/20/2018 and plan to remove khris on . Patient on IV acyclovir for treatment of zoster. Lesions have scabbed over by the time of discharge. Patient had neuropathy Headache treated with oral gabapentin and later on on oral Topamax which will be continued at the time of discharge along with oral Rodman as needed for breakthrough pain. Patient also provided oral Lasix 20 mg to be used daily as needed for 3 pound weight gain. Patient will also require weaning off supplemental oxygen as tolerated while at SNF. Physical exam: AAO x 3, NAD PERRLA, EOMI. Scabbing noted over scalp, forehead, left side of neck and chest wall. S1 and S2 heard on auscultation, no murmurs Breath sounds appreciable on auscultation bilateral lung conde. No crackles Abdomen soft, nontender, positive bowel sounds Trace edema bilateral lower extremities.
[2018-05-25] MEDS ORDERED: FUROSEMIDE 20 MG TABLET PO ONE (12:51)
--- NOTE | 2018-05-25 13:22 | Extended Care Facility Orders ---
<Yanira Marti - Last Filed: 05/25/18 13:25> Admission Orders Admit to:: [facility] Allergies/Adverse Reactions: Allergies Penicillins Allergy (Intermediate, Verified 05/15/18 17:37) INJECTION SITE RED olmesartan Allergy (Unknown, Verified 05/15/18 17:37) PER H&P DATED 05-07-15 nitroglycerin Adverse Reaction (Severe, Verified 05/15/18 17:37) HEADACHE, HYPOTENSION aspirin Adverse Reaction (Mild, Verified 05/15/18 17:37) CAUSES DYSPEPSIA PATIENT DOES NOT HAVE AN ALLERGY TO, BUT IS SOMEWHAT INTOLERANT OF ASA - DYSPEPSIA. carvedilol Adverse Reaction (Unknown, Verified 05/15/18 17:37) SEVERE DIARRHEA adhesive Adverse Reaction (Verified 05/15/18 17:37) Admitting Diagnosis: Intractable headache, herpes zoster Admitting Physician: Hussein Krishnan MD Attending Physician: Hussein Krishnan MD Code Status: Full Code Anticiapted Length of Stay: 30 days or less Rehab Potential: good Rehab Prognosis: good Diet: Regular Diet Wound/Incision Care: Monitor scalp wound for redness, purulent drainage, warmth , swelling. OK to shower but do not soak. [place] should be removed around - Dr. Gomez will likely remove them on rounds on 05/30/18. May use Facility Protocol or Standing Orders: Yes May have flu vaccine: Yes Evaluations/Treatment: PT, OT [facility] Certification: I certify that SNF services are required to be given on an inpatient basis because of the patient's need for [facility] care on a continuing basis for the condition(s) for which she received inpatient hospital services prior to her transfer to the SNF. SNF inpatient care is necessary for the following reasons: - Additional Information In Event of Arrest: Start CPR,call 911,send patient to the ER Referrals: Mario Gomez MD [Primary Care Provider] - 1 Week Additional Orders: Goal weight = 70 kg. Still on 2L O2 at time of hospital discharge; wean oxygen as able. Please weigh patient daily and if she gains 3 lbs. or more in 24 hours give a PRN dose of Lasix (and KDur). Dr. Gomez to order BMP and INR. <Hussein Krishnan - Last Filed: 05/25/18 14:41> Admission Orders Admitting Diagnosis: Intractable headache Admitting Physician: Hussein Krishnan MD Attending Physician: Hussein Krishnan MD Code Status: Full Code Diet: 05/16/18 Breakfast Regular Diet [DIET] Diet Modifications: [facility] Certification: I certify that SNF services are required to be given on an inpatient basis because of the patient's need for [facility] care on a continuing basis for the condition(s) for which he/she received inpatient hospital services prior to his/her transfer to the SNF. SNF inpatient care is necessary for the following reasons:
== END 2018-05-25 15:10 | DRG 74 ==
LOC: MED → SUATTDRO 05-16 15:07
PROVIDERS: ADMIT Hospitalist; ATTEND Internal Medicine